=== PATIENT | male | born 1990 | race Two or more races ===

== ENCOUNTER 2024-02-27 12:16 | Outpatient (REF) | payer SELFPAY ==
[2024-02-27 13:07] LABS: MANUAL DIFF FLAG NO
[2024-02-27 13:28] LABS: Basophils Percent Auto 0.3 % (0-2); Eosinophils Absolute Auto 0.2 X10*3/uL (0.0-0.4); Eosinophils Percent Auto 2.6 % (0-4); Hematocrit 47.5 % (42.0-52.0); Hemoglobin 15.7 g/dl (14.0-18.0); Imm Gran Abs Auto 0.02 X10*3/uL (0.00-0.03); Imm Gran Pct Auto 0.3 % (0.0-0.4); Lymphocytes Absolute Auto 2.1 X10*3/uL (1.2-4.9); Lymphocytes Percent Auto 34.3 % (20-40); Mean Corpuscular HGB Conc 33.1 g/dl (31.0-36.0); Mean Corpuscular Hemoglobin 29.1 pg (27.0-33.0); Mean Platelet Volume 9.8 fL (9.4-12.4); Monocytes Absolute Auto 0.4 X10*3/uL (0.1-1.2); Monocytes Percent Auto 5.7 % (2-11); Neutrophils Absolute Auto 3.5 x10*3/uL (2.0-8.3); Neutrophils Percent Auto 56.8 % (45-73); Platelet Count 235 X10*3/uL (160-400); Red Cell Distribution Width 12.5 % (11.0-16.0); White Blood Count 6.1 X10*3/uL (4.8-10.8)
[2024-02-27 13:53] LABS: Anion Gap 14 (12-20); Blood Urea Nitrogen 12 mg/dL (9-16); C Reactive Protein 0.11 mg/dL (< or = 0.50); Carbon Dioxide 25 mmol/L (22-29); Chloride 104 mmol/L (96-108); Estimated Glomerular Filt Rate > 60; Glucose Random 85 mg/dL (60-115); Potassium 3.8 mmol/L (3.3-5.1); Sodium 139 mmol/L (135-145)
[2024-02-27 14:07] LABS: Erythrocyte Sedimentation Rate 2 MM/HR (0-15)
== END 2024-02-27 12:17 | disposition home or self-care (01) ==
LOC: HO.HHCL 12:16
PROVIDERS: Visit Provider Internal Medicine Geriatric Medicine
DX: M25.561 Pain in right knee (principal)
CPT/HCPCS: 36415; 80048; 85025; 85652; 86140

== ENCOUNTER 2024-03-03 11:49 | Outpatient (REF) | payer MEDICAID, SELFPAY | END 2024-03-03 11:50 | disposition home or self-care (01) | LOC: HO.HHCL 11:49 | PROVIDERS: Visit Provider Student in an Organized Health Care Education/Training Program | DX: Z13.89 Encounter for screening for other disorder (principal) ==

== ENCOUNTER 2024-08-18 08:21 | Outpatient (REF) | payer MEDICAID, SELFPAY | END 2024-08-18 08:22 | disposition home or self-care (01) | LOC: HO.US 08:21 | PROVIDERS: PCP Internal Medicine Geriatric Medicine; Visit Provider Internal Medicine Geriatric Medicine | DX: M25.561 Pain in right knee (principal); Z86.718 Personal history of other venous thrombosis and embolism | CPT/HCPCS: 93971 ==

== ENCOUNTER → 2024-08-18 08:25 | Outpatient (BNV) | payer MEDICAID, SELFPAY | PROVIDERS: PCP Internal Medicine Geriatric Medicine; Visit Provider Radiology Diagnostic Radiology | DX: M25.561 Pain in right knee (principal) | CPT/HCPCS: 93971 ==

== ENCOUNTER 2024-09-01 08:07 | Outpatient (AMB) | payer MEDICAID, SELFPAY ==
--- OUTSIDE RECORDS SUMMARY | 2024-09-01 08:10 | XMS_ITS | Encounter Summary ---
Author Organization [employer] Address [address] [facility] 7t [place] [address] Care Team Providers Care Manager Human Resources Name Role Phone Name, Milton GHOSH Primary Care Provider [phone] Encounter Details Date Type Department Care Team ([facility] st Contact Info) Description 08/18/2024 Orders Only [facility] [address] [place] [address] Name, MD Milton [address] [place] [address] Social History Tobacco Use Types Packs/Day Years Used Date Smoking Tobacco: Former Cigarettes Alcohol Use Standard Drinks/Week Comments Yes 0 (1 standard drink = 0.6 oz pur e alcohol) oca Depression Answer Date Recorded Patient Health Questionnaire-9 Score 9 01/28/2024 Patient Health Questionnaire-9 Score 9 01/28/2024 Last PHQ-9: Questionnaire Data Not on file 0 01/28/2024 Housing Stability Answer Date Recorded What is your housing situation today? I have jose maria donald 01/21/[address] you li ve. Do you have problems with any of the following? Lead [place] or Pipes 01/21/2024 Food Insecurity Answer Date Recorded Within the past 12 months, y ou worried that your food would run out before you got money to buy more: Often true 01/21/2024 Within the past 12 months,th e food you bought just didn't last and you didn't have enough money to get more: Often true Transportation Answer Date Recorded In the past 12 months, has l ack of transportation kept you from medical appts, meetings, work or from getting things needed for daily living? No 01/21/2024 Utilities Answer Date Recorded In the past 12 months, has t he electric, gas, oil or water company threatened to shut off services in your home? No 01/21/2024 Depression Answer Date Recorded Patient Health Questionnaire-2 Score 6 01/28/2024 Internet Access Answer Date Recorded Internet Access Q1 Yes 03/10/2024 Internet Access Q2 Not on file 03/10/2024 Sex and Gender Information Value Date Recorded Sex Assigned at Male 01/01/2024 1:41 PM EDT Legal Sex Male 1:38 PM EDT Gender Identity Male 01/01/2024 1:41 PM EDT Sexual Orientation Straight 01/01/2024 1: 41 PM EDT documented as of this encounter Plan of Treatment Upcoming Encounters Date Type Department Care Team (Late st Contact Info) Description 09/10/2024 3:15 PM EST Office Visit [facility] [address] [place] [id number] Name, MD Milton [address] [place] [address] documented as of this encounter Procedures Procedure Name Priority Date/Time Associated Diagnosis Comments US VENOUS DUPLEX LE RT Routine 08/18/2024 10:37 AM EST documented in this encounter Results * US VENOUS DUPLEX LE RT (08/18/2024 10:37 AM EST) Anatomical Region Laterality Modality Abdomen Ultrasound 08/18/2024 10:3 7 AM EST Narrative 08/18/2024 10:38 AM EST ? [facility] ?[address] ?[place] [address] ? Ultrasound Report ? Signed ? Patient: Douglas Ruvalcaba ?MR#: MM ?? [id number] ? : 1990 ?Acct:[id number] ? Age/Sex: 34 / M ?ADM Date: 02/10/25 ? Loc: HO.US ? Attending Dr: Milton Venegas MD ? Ordering Physician: Milton Venegas MD ?? Date of Service: 08/18/24 ?? Procedure(s): US venous duplex LE RT ?? Accession Number(s): [id number] ? cc: Milton Venegas MD ? CLINICAL HISTORY: CHRONIC PAIN OF RIGHT KNEE, HX OF DVT ? Right lower extremity duplex venous Doppler ? Comparison: None ? Technique: Grayscale/Color/Duplex Doppler sonographic evaluation of the ?? deep venous system within the right lower extremity. ? Findings: ?? Right lower extremity ?? Common femoral vein: Patent ?? CFV/GSV junction: Patent ?? Femoral vein: Patent ?? Popliteal vein: Patent ?? Infrapopliteal veins: Patent where seen ?? Soft tissue: No focal abnormality ? Impression: ?? 1. Negative for right lower extremity DVT. ?? 2. No Toscano's cyst ? This document has been electronically signed by: Jean Claude Hayes MD on ?? 08/18/2024 10:37:54 ? Dictated By: ?Jean Claude Hayes MD ? Signed By: ?<Electronically signed by Jean Claude Hayes MD in OV> ?08/18/24 1038 ? DD/ 1037 ? TD/TT: 08/18/24 1037 ? Human Performance Consultant: ? Procedure Note Jewels Cummings - 08/18/2024 [place] [id number] Ultrasound Report Signed Patient: Douglas Ruvalcaba#: [id number] : 1990Acct:[id number] Age/Sex: 34 / MADM Date: 08/18/24 Loc: HO. Attending Dr: Milton Venegas MD Ordering Physician: Milton Venegas MD Date of Service: 08/18/24 Procedure(s): US venous duplex LE RT Accession Number(s): [id number] cc: Milton Venegas MD CLINICAL HISTORY: CHRONIC PAIN OF RIGHT KNEE, HX OF DVT Right lower extremity duplex venous Doppler Comparison: None Technique: Grayscale/Color/Duplex Doppler sonographic evaluation of the deep venous system within the right lower extremity. Findings: Right lower extremity Common femoral vein: Patent CFV/GSV junction: Patent Femoral vein: Patent Popliteal vein: Patent Infrapopliteal veins: Patent where seen Soft tissue: No focal abnormality Impression: 1. Negative for right lower extremity DVT. 2. No Toscano's cyst This document has been electronically signed by: Jean Claude Hayes MD on 08/18/2024 10:37:54 Dictated By: Jean Claude Hayes MD Signed By: <Electronically signed by Jean Claude Hayes MD in OV> 08/18/24 1038 DD/ 1037 TD/TT: 08/18/24 1037 Human Performance Consultant: us Milton [facility] Final Result documented in this encounter Visit Diagnoses Not on filedocumented in this encounter Additional Health Concerns Assessment Noted Time PHQ-9 Depression Total Score: 9 01/28/20 24 1:05 PM EDT documented as of this encounter Care Teams Manager Human Resources Relationship Specialty Start Date End Date Name, MD Milton [address] [place] [address] PCP - General Internal Medicine 01/28/24 documented as of this encounter
--- OUTSIDE RECORDS SUMMARY | 2024-09-01 08:10 | XMS_ITS | Encounter Summary ---
Author Organization [employer] Address [address] [facility] [address] h [address] [address] Care Team Providers Care Fund Director Name Role Phone Name, Milton GHOSH Primary Care Provider [phone] Reason for Visit * Reason Onset Date Comments Medication Question 08/27/2024 Patient walk ed in stating his leg pains keeps on and medication prescribed is not helping , patient stated he needs a different medication . Also patient stated his leg sometimes doesn't move it stays stuck it doesn't bend. Encounter Details Date Type Department Care Team (Late st Contact Info) Description 08/27/2024 Telephone [facility] [address] [place] [address] Name, MD Milton [address] [place] [address] Medication Question (Patient walked in stating his leg pains keeps on and medication prescribed is not helping , patient stated he needs a different medication . Also patient stated his leg sometimes doesn't move it stays stuck it doesn't bend. ) Social History Tobacco Use Types Packs/Day Years [...] problems with any of the following? Lead [place] or Pipes 01/21/2024 Food Insecurity Answer Date [...] PM EDT documented as of this encounter Miscellaneous Notes * Telephone Encounter - Lore Gutierrez RN - 08/27/2024 1:29 PM EST TC to pt re below message : Patient walked in stating his leg pains keeps on and medication prescribed is not helping , patientstated he needs a different medication . Also patient stated his leg sometimes doesn't move it stays stuck it doesn't bend. Pt states he is in a great deal of pain, states the meds he is currently on are not providing relief, pt asking if pcp can prescribe the med I was on at first. Pt advised to go to walk in center per pcp, pt states they don't do anything nthat helps my pain. Message forwarded to pcp as FYI. Pt has appt 09/10/24. * Telephone Encounter - Milton Venegas MD - 08/27/2024 11:42 AM EST Why dont you have this patient be evaluated at the walk in clinic? * Telephone Encounter - Cortney Mark - 08/27/2024 11:35 AM EST Patient walked in stating his leg pains keeps on and medication prescribed is not helping , patientstated he needs a different medication . Also patient stated his leg sometimes doesn't move it stays stuck it doesn't bend. documented in this encounter Plan of Treatment Upcoming Encounters Date Type Department Care Team (Late st Contact Info) Description 09/10/2024 3:15 PM EST Office Visit [facility] [address] [place] [address] NameMitlon MD [address] [place] [address] documented as of this encounter Visit Diagnoses Diagnosis Acute deep vein thrombosis (DVT) of right lower extremity, unspecified vein (CMS/HCC)- Primary documented in this encounter Additional Health Concerns Assessment Noted Time PHQ-9 Depression Total Score: 9 01/28/20 24 1:05 PM EDT documented as of this encounter Care Teams Fund Director Relationship Specialty Start Date End Date NameMilton MD [address] [place] [phone] PCP - General Internal Medicine 01/28/24 documented as of this encounter
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
--- OUTSIDE RECORDS SUMMARY | 2024-09-01 08:10 | XMS_ITS | Encounter Summary ---
Author Organization [employer] Address [address] [facility] [address] 7t [place] [address] Care Team Providers Care Loftsman/Woman Name Role Phone Name, Milton GHOSH Primary Care Provider [phone] Encounter Details Date Type Department Care Team ([facility] st Contact Info) Description 08/18/2024 Telephone [facility] [address] [place], [place] [phone] Veronica Hall, RN Social History Tobacco Use Types Packs/Day Years [...] problems with any of the following? Lead [place] or Pipes 01/21/2024 Food Insecurity Answer Date [...] t he electric, gas, oil or water [employer] threatened to shut off services in your [...] encounter Miscellaneous Notes * Telephone Encounter - Veronica Hall RN - 08/18/2024 12:15 PM EST TC placed to pt via [employer] sumac tanner ([place] ID#[id number]) per below provider message, Milton Venegas MD; Please let the patient know that his leg ultrasound is normal. DVT has resolved completely. Pt verbalized understanding of PCP message and denies questions or concerns at this time. documented in this encounter Plan of Treatment Upcoming Encounters Date Type Department Care Team (Late st Contact Info) Description 09/10/2024 3:15 PM EST Office Visit [facility] [address] [place] [address] Name, MD Milton [address] [place] [address] documented as of this encounter Visit Diagnoses Not on filedocumented in this encounter Additional Health Concerns Assessment Noted Time PHQ-9 Depression Total Score: 9 01/28/20 24 1:05 PM EDT documented as of this encounter Care Teams Loftsman/Woman Relationship Specialty Start Date End Date Name, MD Milton [address] [place] [id number] PCP - General Internal Medicine 01/28/24 documented as of this encounter
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
[2024-09-01 08:24] VITALS: BMI 28.9
== END 2024-09-01 08:50 | disposition home or self-care (01) ==
PROVIDERS: PCP Internal Medicine Geriatric Medicine; Visit Provider Physician Assistant
DX: M25.361 Other instability, right knee (principal); S81.031D Puncture wound without foreign body, right knee, subsequent encounter; M76.71 Peroneal tendinitis, right leg
CPT/HCPCS: 99203

== ENCOUNTER → 2024-09-01 08:10 | Outpatient (BNV) | payer MEDICAID, SELFPAY | PROVIDERS: Visit Provider Radiology Diagnostic Radiology | DX: M17.11 Unilateral primary osteoarthritis, right knee (principal) | CPT/HCPCS: 73562 ==

== ENCOUNTER 2024-09-01 12:15 | Outpatient (REF) | payer MEDICAID, SELFPAY ==
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
--- OUTSIDE RECORDS SUMMARY | 2024-09-02 14:53 | XMS_ITS | Encounter Summary ---
Author Organization [employer] Address [address] [facility] 7t [place] [address] Care Team Providers Care Fire Control Technician B Name Role Phone Name, Milton GHOSH Primary Care Provider [phone] Reason for Visit * Reason Comments Fall Encounter Details Date Type Department Care Team ([facility] st Contact Info) Description 08/11/2024 3:00 PM EST Office Visit [facility] [address] [place], [place] [phone] Catia Kumar NP [address] [place], [place] [phone] Fall, subsequent encounter (Primary Dx); Right knee [...] problems with any of the following? Lead [place] or Pipes 01/21/2024 Food Insecurity Answer Date [...] Description 09/10/2024 3:15 PM EST Office Visit [facility] [address] [place] [address] Name, MD Milton [address] [place] [address] documented as of this encounter Visit Diagnoses Diagnosis Fall, subsequent encounter- Primary Right knee pain, unspecified chronicity Recurrent right knee instability documented in this encounter Additional Health Concerns Assessment Noted Time PHQ-9 Depression Total Score: 9 01/28/20 24 1:05 PM EDT documented as of this encounter Care Teams Fire Control Technician B Relationship Specialty Start Date End Date Name, MD Milton [address] [place] [address] PCP - General Internal Medicine 01/28/24 documented as of this encounter
--- OUTSIDE RECORDS SUMMARY | 2024-09-02 14:53 | XMS_ITS | Encounter Summary ---
Author Organization [employer] Address [address] [facility] 7t [place] [address] Care Team Providers Care Insulation Professional Name Role Phone Name, Milton GHOSH Primary Care Provider [phone] Reason for Visit * Reason Onset Date [...] (Late st Contact Info) Description 08/27/2024 Telephone [facility] [address] [place] [address] Name, MD Milton [address] [place] [address] Medication Question (Patient walked in [...] problems with any of the following? Lead [place] or Pipes 01/21/2024 Food Insecurity Answer Date [...] Description 09/10/2024 3:15 PM EST Office Visit [facility] [address] [place] [phone] NameMilton MD 230 [place] [address] documented as of this encounter Visit Diagnoses Diagnosis Acute deep vein thrombosis (DVT) of right lower extremity, unspecified vein (CMS/HCC)- Primary documented in this encounter Additional Health Concerns Assessment Noted Time PHQ-9 Depression Total Score: 9 01/28/20 24 1:05 PM EDT documented as of this encounter Care Teams Insulation Professional Relationship Specialty Start Date End Date NameMilton MD [address] [place] [address] PCP - General Internal Medicine 01/28/24 documented as of this encounter
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
--- OUTSIDE RECORDS SUMMARY | 2024-09-02 14:53 | XMS_ITS | Encounter Summary ---
Author Organization [employer] Address [address] [facility] 7t [place] [address] Care Team Providers Care Rod Puller And Coiler Name Role Phone Name, Milton GHOSH Primary Care Provider [phone] Encounter Details Date Type Department Care Team ([facility] st Contact Info) Description 08/18/2024 Orders Only [facility] [address] [place] [address] Name, MD Milton [address] [place] [address] Social History Tobacco Use Types Packs/Day Years [...] problems with any of the following? Lead [place] or Pipes 01/21/2024 Food Insecurity Answer Date [...] Description 09/10/2024 3:15 PM EST Office Visit [facility] [address] [place] [address] Name, MD Milton [address] [place] [address] documented as of this encounter Procedures Procedure Name Priority Date/Time Associated Diagnosis Comments US VENOUS DUPLEX LE RT Routine 08/18/2024 10:37 AM EST documented in this encounter Results * US VENOUS DUPLEX LE RT (08/18/2024 10:37 AM EST) Anatomical Region Laterality Modality Abdomen Ultrasound 08/18/2024 10:3 7 AM EST Narrative 08/18/2024 10:38 AM EST ? [facility] ?[address] ?[place] [address] ? Ultrasound Report ? Signed ? Patient: Douglas Ruvalcaba ?MR#: MM ?? [id number] ? : 1990 ?Acct:[id number] ? Age/Sex: 34 / M ?ADM Date: 02/10/25 ? Loc: HO.US ? Attending Dr: Milton Venegas MD ? Ordering Physician: Milton Venegas MD ?? Date of Service: 08/18/24 ?? Procedure(s): US venous duplex LE RT ?? Accession Number(s): [id number] ? cc: Milton Venegas MD ? CLINICAL [...] DD/ 1037 ? TD/TT: 08/18/24 1037 ? Control Room Technician: ? Procedure Note Jewels Cummings - 08/18/2024 [place] [address] Ultrasound Report Signed Patient: Douglas Ruvalcaba#: MM [id number] : 1990Acct:[id number] Age/Sex: 34 / MADM Date: 08/18/24 Loc: HO. Attending Dr: Milton Venegas MD Ordering Physician: Milotn Venegas MD Date of Service: 08/18/24 Procedure(s): US venous duplex LE RT Accession Number(s): [id number] cc: Milton Venegas MD CLINICAL HISTORY: CHRONIC [...] 08/18/24 1038 DD/ 1037 TD/TT: 08/18/24 1037 Control Room Technician: us Milton Name [facility] PROCEDURES Final Result documented in this encounter Visit Diagnoses Not on filedocumented in this encounter Additional Health Concerns Assessment Noted Time PHQ-9 Depression Total Score: 9 01/28/20 24 1:05 PM EDT documented as of this encounter Care Teams Rod Puller And Coiler Relationship Specialty Start Date End Date Name, MD Milton [address] [place] [address] PCP - General Internal Medicine 01/28/24 documented as of this encounter
== END 2024-09-01 12:16 | disposition home or self-care (01) ==
LOC: HO.HOSX 12:15
PROVIDERS: Visit Provider Physician Assistant
DX: M17.11 Unilateral primary osteoarthritis, right knee (principal); Z87.81 Personal history of (healed) traumatic fracture; Z98.890 Other specified postprocedural states
CPT/HCPCS: 73562; 99212

== ENCOUNTER 2024-10-20 11:04 | Emergency (ER) | payer OTHER, MEDICAID, SELFPAY ==
--- NOTE | ~2024-10-20 | XR_ITS ---
EXAMINATION: XR HIP 2 OR MORE VIEWS LEFT, XR FEMUR 2 VIEWS LEFT HISTORY: fall, pain COMPARISON: There are no prior studies for comparison. FINDINGS: A single AP view of the pelvis, 2 views of the left hip, and AP and lateral views of the left femur are submitted. Osseous mineralization is normal. There is no fracture or dislocation. The hip and knee joint spaces are maintained. The soft tissues are unremarkable. XR/XR femur LT 2V IMPRESSION: No evidence of fracture of the left hip or femur. Electronically signed by: Joe Obrien MD 10/20/2024 12:12 PM EDT
--- NOTE | ~2024-10-20 | CT_ITS ---
EXAMINATION: CT ABDOMEN PELVIS WITH IV CONTRAST, CT CHEST WITH IV CONTRAST INDICATION: L flank pain, fall 6 feet COMPARISON: None. TECHNIQUE: CT scan of the chest, abdomen and pelvis was performed following administration of 85 mL Omnipaque 350 using standard departmental protocol. Coronal and sagittal reformatted images were generated and reviewed. Oral contrast material was not administered at the request of the referring physician. This CT exam was performed with one or more of the following dose reduction techniques: automated exposure control, adjustment of the mA and/or kV according to patient size, use of iterative reconstruction technique. DLP: 1524 mGy-cm CHEST: THYROID: The thyroid is unremarkable. LUNGS: There is mild dependent atelectasis bilaterally. The lungs are otherwise clear. MEDIASTINUM: There is no mediastinal lymphadenopathy. ELISSA: There is no hilar lymphadenopathy. CARDIOVASCULATURE: The heart is normal in size. There is no pericardial effusion. The thoracic aorta is normal in caliber. DEGREE OF CORONARY CALCIFICATION: none PLEURA: There is no pleural effusion. No pneumothorax. MAIN AIRWAYS: The mainstem bronchi and proximal branches are patent. AXILLA: There is no axillary lymphadenopathy. SOFT TISSUES: Unremarkable. BONES: The bones are intact. ABDOMEN: LIVER: The liver is normal in size and contour. No liver mass is identified. The hepatic and portal veins are patent. GALLBLADDER / BILE DUCTS: The gallbladder is unremarkable. There is no intra or extrahepatic biliary ductal dilatation. SPLEEN: The spleen is normal in size. No focal splenic lesion is identified. PANCREAS: The pancreas is unremarkable in appearance. ADRENAL GLANDS: Within normal limits. KIDNEYS/RETROPERITONEUM: No renal calculi are identified. There is no hydronephrosis. No renal masses are identified. LYMPH NODES: No abdominal or pelvic lymphadenopathy. VASCULATURE: The abdominal aorta is normal in caliber. MESENTERY/PERITONEUM: No free fluid. No masses. There is no free intraperitoneal gas. STOMACH: The stomach is collapsed, limiting evaluation. SMALL BOWEL: The small bowel is normal in caliber. COLON: The colon is unremarkable. APPENDIX: Normal. URINARY BLADDER/PELVIC ORGANS: The urinary bladder is unremarkable. The prostate is normal in size. BONES / SOFT TISSUES: There is a fat-containing left inguinal hernia. The bones are intact. CT/CT abdomen pelvis w IV con IMPRESSION: No evidence of traumatic injury to the chest, abdomen, or pelvis. Electronically signed by: Joe Obrien MD 10/20/2024 01:29 PM EDT RP
--- NOTE | ~2024-10-20 | XR_ITS ---
EXAMINATION: XR KNEE 3 VIEWS LEFT HISTORY: fall, pain COMPARISON: There are no prior studies available for comparison. FINDINGS: Four views of the left knee are submitted. Osseous mineralization is normal. There is no fracture or dislocation. The joint spaces are preserved. The soft tissues are unremarkable. There is no joint effusion. XR/XR knee LT 3V IMPRESSION: Unremarkable examination of the left knee. Electronically signed by: Joe Obrien MD 10/20/2024 12:14 PM EDT
--- NOTE | ~2024-10-20 | XR_ITS ---
EXAMINATION: XR HIP 2 OR MORE VIEWS LEFT, XR FEMUR 2 VIEWS LEFT HISTORY: fall, pain COMPARISON: There are no prior studies for comparison. FINDINGS: A single AP view of the pelvis, 2 views of the left hip, and AP and lateral views of the left femur are submitted. Osseous mineralization is normal. There is no fracture or dislocation. The hip and knee joint spaces are maintained. The soft tissues are unremarkable. XR/XR pelvis 1-2V IMPRESSION: No evidence of fracture of the left hip or femur. Electronically signed by: Joe Obrien MD 10/20/2024 12:12 PM EDT
--- NOTE | ~2024-10-20 | CT_ITS ---
EXAMINATION: CT HEAD WITHOUT CONTRAST CLINICAL INFORMATION: Headache, fall off of ladder. Head trauma. COMPARISON: None available. TECHNIQUE: Contiguous axial imaging was performed from the skull base to vertex without intravenous administration of contrast. This CT examination was performed using dose optimization techniques as appropriate, variously including the following: *Automated exposure control *Adjustment of mA and/or kV according to patient size (this includes techniques or standardized protocols for targeted exams where dose is matched to indication/reason for exam; i.e. extremities or head) *Use of iterative reconstruction technique FINDINGS: There is no evidence of intracranial hemorrhage or extra-axial fluid collection. There is no mass effect, or edema. No CT evidence of acute territorial infarct. Ventricles, sulci, and cisterns are normal in size and configuration for patient age. No hydrocephalus. No midline shift. Negative hyperdense MCA sign. Negative insular ribbon sign. No significant white matter abnormality. Normal pituitary. Globes and orbital contents image normally. Mild soft tissue swelling over the right frontal scalp noted. The paranasal sinuses, mastoid air cells, and tympanic cavities are normally aerated. No suspicious bony abnormalities. There are no acute fractures evident. CT/CT head/brain wo IV con IMPRESSION: 1. No acute intracranial abnormality. No fractures evident. 2. Mild soft tissue swelling overlying right frontal scalp. Electronically signed by: Prashanth Khanna MD 10/20/2024 01:43 PM EDT
--- NOTE | ~2024-10-20 | CT_ITS ---
EXAMINATION: CT CERVICAL SPINE WITHOUT CONTRAST CLINICAL INFORMATION: Fall, neck pain COMPARISON: None available. TECHNIQUE: Spiral CT imaging of the cervical spine performed in axial plane without contrast. Multiplanar reformatted images were constructed from the axial data set. This CT examination was performed using dose optimization techniques as appropriate, variously including the following: *Automated exposure control *Adjustment of mA and/or kV according to patient size (this includes techniques or standardized protocols for targeted exams where dose is matched to indication/reason for exam; i.e. extremities or head) *Use of iterative reconstruction technique FINDINGS: CORONAL ALIGNMENT: -Normal. SAGITTAL ALIGNMENT: -Normal. C1-C2 AND CRANIOCERVICAL JUNCTION: -Intact and normally aligned. VERTEBRAL BODIES AND FACETS: -No fracture, compression deformity, traumatic malalignment, or suspicious bone lesion. -Normal facet alignment bilaterally. DISCS: -Mild degenerative disc changes present C4-C7. CENTRAL CANAL: -No evidence of high-grade central canal narrowing or large disc herniation allowing for modality limitations. PREVERTEBRAL AND PARAVERTEBRAL SOFT TISSUES: -Normal. -Normal thyroid gland. LUNG APICES: -Clear bilaterally. No pneumothorax. CT/CT cervical spine wo IV con IMPRESSION: 1. No CT evidence of acute cervical spine fracture or injury. Electronically signed by: Prashanth Khanna MD 10/20/2024 01:46 PM EDT
--- NOTE | ~2024-10-20 | XR_ITS ---
EXAMINATION: XR ANKLE, LEFT CLINICAL INFORMATION: fall, pain COMPARISON: None available. TECHNIQUE: AP, lateral, and mortise views of the left ankle. FINDINGS: Prior lateral plate and screw fixation of the distal fibular metadiaphysis. No hardware loosening or abnormality. No acute fracture or dislocation. Normal alignment. The mortise is intact. The talar dome is normal. The subtalar joints and calcaneus appear normal. There is no ankle joint effusion. There is normal soft tissue. XR/XR ankle LT 2V IMPRESSION: No acute bony or soft tissue abnormalities. Electronically signed by: Prashanth Khanna MD 10/20/2024 12:14 PM EDT
[2024-10-20 11:20] VITALS: BP 134/80; PULSE 58; RESP 14; TEMP 36.9; O2SAT 98; BMI 29.8
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
[2024-10-20 11:46] LABS: MANUAL DIFF FLAG NO
--- NOTE | 2024-10-20 11:50 | PC.NURSE ---
pt at imaging
[2024-10-20 11:52] LABS: Basophils Percent Auto 0.5 % (0-2); Eosinophils Absolute Auto 0.2 X10*3/uL (0.0-0.4); Eosinophils Percent Auto 2.7 % (0-4); Hematocrit 42.1 % (42.0-52.0); Hemoglobin 14.3 g/dl (14.0-18.0); Imm Gran Abs Auto 0.01 X10*3/uL (0.00-0.03); Imm Gran Pct Auto 0.2 % (0.0-0.4); Lymphocytes Absolute Auto 2.1 X10*3/uL (1.2-4.9); Lymphocytes Percent Auto 37.1 % (20-40); Mean Corpuscular Hemoglobin 30.4 pg (27.0-33.0); Mean Corpuscular Volume 89.4 fL (80.0-98.0); Mean Platelet Volume 9.7 fL (9.4-12.4); Monocytes Absolute Auto 0.3 X10*3/uL (0.1-1.2); Monocytes Percent Auto 6.1 % (2-11); Neutrophils Percent Auto 53.4 % (45-73); Platelet Count 235 X10*3/uL (160-400); Red Blood Count 4.71 X10*6/uL (4.60-5.80); Red Cell Distribution Width 12.5 % (11.0-16.0); White Blood Count 5.6 X10*3/uL (4.8-10.8)
[2024-10-20 12:04] VITALS: RESP 20
[2024-10-20] MEDS: Morphine Sulfate 2 MG/ML CARTRIDGE IVPUSH ×2 (12:04→13:44)
[2024-10-20 12:06] LABS: Alanine Aminotransferase 11 U/L (0-40); Albumin Level 4.5 g/dL (3.5-5.0); Alkaline Phosphatase 76 U/L (39-117); Anion Gap 10 (12-20); Aspartate Amino Transferase 24 U/L (5-37); Bilirubin Direct 0.2 mg/dL (0.0-0.5); Bilirubin Total 0.7 mg/dL (0.0-1.0); Blood Urea Nitrogen 12 mg/dL (9-16); Calcium 9.4 mg/dL (8.4-10.2); Carbon Dioxide 25 mmol/L (22-29); Chloride 107 mmol/L (96-108); Creatinine Clr Calc Pharmacy 141.4; Estimated Glomerular Filt Rate > 60; Glucose Random 89 mg/dL (60-115); Sodium 138 mmol/L (135-145); Total Protein 7.4 g/dL (6.5-8.0)
[2024-10-20] MEDS: iohexoL 350 MG/ML 100 ML INFUS..BTL IV (12:58)
[2024-10-20 13:44] VITALS: RESP 18
[2024-10-20 13:48] VITALS: BP 126/70; PULSE 78; RESP 18
[2024-10-20 14:00] VITALS: BP 126/70; PULSE 78; RESP 18; TEMP 37; O2SAT 97
[2024-10-20 14:38] VITALS: BP 126/70; PULSE 78; RESP 18; TEMP 37; O2SAT 97
--- OUTSIDE RECORDS SUMMARY | 2024-10-20 14:41 | XMS_ITS | Encounter Summary ---
Author Organization [employer] Address [address] [facility] 7[address] [place] [address] Care Team Providers Care Credit Product Analyst Name Role Phone Name, Milton GHOSH Primary Care Provider [phone] Encounter Details Date Type Department Care Team (Late st Contact Info) Description 10/20/2024 Orders Only [facility] External Provider, [facility] Social History Tobacco Use Types Packs/Day Years Used Date Smoking Tobacco: Former Cigarettes Alcohol Use Standard Drinks/Week Comments Yes 0 (1 standard drink = 0.6 oz pur e alcohol) oca Depression Answer Date Recorded Patient Health Questionnaire-9 Score 19 09/10/2024 Patient Health Questionnaire-9 Score 19 09/10/2024 Last PHQ-9: Questionnaire Data Not on file 0 09/10/2024 Housing Stability Answer Date Recorded What is your housing situation today? I have jose maria donald 01/21/[address] you li ve. Do you have problems with any of the following? Lead [place] [employer] 01/21/2024 Food Insecurity Answer Date [...] Date Recorded Patient Health Questionnaire-2 Score 6 09/10/2024 Internet Access Answer Date Recorded Internet Access [...] Care Team (Late st Contact Info) Description 12/24/2024 2:00 PM EDT Office Visit [facility] [address] [place] [address] Name, MD Milton [address] [place] [address] documented as of this encounter Procedures Procedure Name Priority Date/Time Associated Diagnosis Comments CT CHEST W CONTRAST Routine 10/20/2024 1 2:[address] ABDOMEN PELVIS W CONTRAST Routine 10/20/2024 11:[address] CERVICAL SPINE WO CONTRAST Routine 10/20/2024 11:[address] HEAD WO CONTRAST Routine 10/20/2024 1 1:23 AM EDT XR ANKLE 2 VIEWS LEFT Routine 10/20/2024 11:23 AM EDT XR KNEE 3 VIEWS LEFT Routine 10/20/2024 11:23 AM EDT XR FEMUR 2+ VIEWS LEFT Routine 10/20/2024 11:23 AM EDT XR HIP 2 OR 3 VIEWS LEFT Routine 10/20/2024 11:23 AM EDT documented in this encounter Results * CT Chest w/ Contrast (10/20/2024 12:28 PM EDT) Anatomical Region Laterality Modality Body, Chest Computed Tomogra phy 10/20/2024 12:2 8 PM EDT Narrative 10/20/2024 1:32 PM EDT ? [facility] ?[address] ?[place] [address] ? CT Scan Report ? Signed ? Patient: RuvalcabaDouglas ?MR#: MM ?? [id number] ? : 1990 ?Acct:[id number] ? Age/Sex: 34 / M ?ADM Date: 10/20/24 ? Loc: HO.ED ? Attending Dr: ? Ordering Physician: Suyapa Cuellar MD ?? Date of Service: 10/20/24 ?? Procedure(s): CT chest w IV con ?? Accession Number(s): [id number] ? cc: Name,Milton GHOSH; Suyapa Cuellar MD ? Report Number: ?? [id number]: Total DLP = ??534.00 mGy-cm ?? EXAMINATION: ??CT ABDOMEN PELVIS WITH IV CONTRAST, CT CHEST WITH IV ?? CONTRAST ? INDICATION: L flank pain, fall 6 feet ? COMPARISON: None. ? TECHNIQUE: CT scan of the chest, abdomen and pelvis was performed ?? following administration of 85 mL Omnipaque 350 using standard ?? departmental protocol. ?? Coronal and sagittal reformatted images were ?? generated and reviewed. ??Oral contrast material was not administered at ?? the request of the referring physician. ? This CT exam was performed with one or more of the following dose ?? reduction techniques: automated exposure control, adjustment of the mA ?? and/or kV according to patient size, use of iterative reconstruction ?? technique. ? DLP: 1524 mGy-cm ? CHEST: ? THYROID: The thyroid is unremarkable. ? LUNGS: There is mild dependent atelectasis bilaterally. The lungs are ?? otherwise clear. ? MEDIASTINUM: There is no mediastinal lymphadenopathy. ? ELISSA: There is no hilar lymphadenopathy. ? CARDIOVASCULATURE: The heart is normal in size. ??There is no ?? pericardial effusion. ??The thoracic aorta is normal in caliber. ? DEGREE OF CORONARY CALCIFICATION: ??none ? PLEURA: ??There is no pleural effusion. ??No pneumothorax. ? MAIN AIRWAYS: The mainstem bronchi and proximal branches are patent. ? AXILLA: There is no axillary lymphadenopathy. ? SOFT TISSUES: ??Unremarkable. ? BONES: ??The bones are intact. ? ABDOMEN: ? LIVER: ??The liver is normal in size and contour. ??No liver mass is ?? identified. ??The hepatic and portal veins are patent. ? GALLBLADDER / BILE DUCTS: ??The gallbladder is unremarkable. There is no ?? intra or extrahepatic biliary ductal dilatation. ? SPLEEN: The spleen is normal in size. No focal splenic lesion is ?? identified. ? PANCREAS: The pancreas is unremarkable in appearance. ? ADRENAL GLANDS: Within normal limits. ? KIDNEYS/RETROPERITONEUM: No renal calculi are identified. There is no ?? hydronephrosis. ??No renal masses are identified. ? LYMPH NODES: ??No abdominal or pelvic lymphadenopathy. ? VASCULATURE: ??The abdominal aorta is normal in caliber. ? MESENTERY/PERITONEUM: No free fluid. No masses. ??There is no free ?? intraperitoneal gas. ? STOMACH: ??The stomach is collapsed, limiting evaluation. ? SMALL BOWEL: ?? The small bowel is normal in caliber. ? COLON: ??The colon is unremarkable. ? APPENDIX: ??Normal. ? URINARY BLADDER/PELVIC ORGANS: The urinary bladder is unremarkable. ? The prostate is normal in size. ? BONES / SOFT TISSUES: ??There is a fat-containing left inguinal hernia. ?? The bones are intact. ? CT/CT chest w IV con ?? IMPRESSION: ?? No evidence of traumatic injury to the chest, abdomen, or pelvis. ? Electronically signed by: ??Joe Obrien MD ??10/20/2024 01:29 PM EDT ?? RP ? Dictated By: ?Joe Obrien MD ? Signed By: ?<Electronically signed by Joe Obrien MD in OV> ?10/20/24 1329 ? DD/ 1228 ? TD/TT: 10/20/24 1309 ? Senior Data Analyst: ? Procedure Note Donotedgarinterpreter, Image - 10/20/[address] [place] [address] [address] Scan Report Signed Patient: Douglas RuvalcabaR#: [id number] : 1990Acct:[id number] Age/Sex: 34 / MADM Date: 10/20/24 Loc: HO.ED Attending Dr: Ordering Physician: Suyapa Cuellar MD Date of Service: 10/20/24 Procedure(s): CT chest w IV con Accession Number(s): [id number] cc: Name,Milton GHOSH; Suyapa Cuellar MD Report Number: [id number]: Total DLP = 534.00 mGy-cm EXAMINATION: CT ABDOMEN PELVIS WITH IV CONTRAST, CT CHEST WITH IV CONTRAST INDICATION: L flank pain, fall 6 feet COMPARISON: None. TECHNIQUE: CT scan of the chest, abdomen and pelvis was performed following administration of 85 mL Omnipaque 350 using standard departmental protocol. Coronal and sagittal reformatted images were generated and reviewed. Oral contrast material was not administered at the request of the referring physician. This CT exam was performed with one or more of the following dose reduction techniques: automated exposure control, adjustment of the mA and/or kV according to patient size, use of iterative reconstruction technique. DLP: 1524 mGy-cm CHEST: THYROID: The thyroid is unremarkable. LUNGS: There is mild dependent atelectasis bilaterally. The lungs are otherwise clear. MEDIASTINUM: There is no mediastinal lymphadenopathy. ELISSA: There is no hilar lymphadenopathy. CARDIOVASCULATURE: The heart is normal in size. There is no pericardial effusion. The thoracic aorta is normal in caliber. DEGREE OF CORONARY CALCIFICATION: none PLEURA: There is no pleural effusion. No pneumothorax. MAIN AIRWAYS: The mainstem bronchi and proximal branches are patent. AXILLA: There is no axillary lymphadenopathy. SOFT TISSUES: Unremarkable. BONES: The bones are intact. ABDOMEN: LIVER: The liver is normal in size and contour. No liver mass is identified. The hepatic and portal veins are patent. GALLBLADDER / BILE DUCTS: The gallbladder is unremarkable. There is no intra or extrahepatic biliary ductal dilatation. SPLEEN: The spleen is normal in size. No focal splenic lesion is identified. PANCREAS: The pancreas is unremarkable in appearance. ADRENAL GLANDS: Within normal limits. KIDNEYS/RETROPERITONEUM: No renal calculi are identified. There is no hydronephrosis. No renal masses are identified. LYMPH NODES: No abdominal or pelvic lymphadenopathy. VASCULATURE: The abdominal aorta is normal in caliber. MESENTERY/PERITONEUM: No free fluid. No masses. There is no free intraperitoneal gas. STOMACH: The stomach is collapsed, limiting evaluation. SMALL BOWEL: The small bowel is normal in caliber. COLON: The colon is unremarkable. APPENDIX: Normal. URINARY BLADDER/PELVIC ORGANS: The urinary bladder is unremarkable. The prostate is normal in size. BONES / SOFT TISSUES: There is a fat-containing left inguinal hernia. The bones are intact. CT/CT chest w IV con IMPRESSION: No evidence of traumatic injury to the chest, abdomen, or pelvis. Electronically signed by: Joe Obrien MD 10/20/2024 01:29 PM EDT Dictated By: Joe Obrien MD Signed By: <Electronically signed by Joe Obrien MD in OV> 10/20/24 1329 DD/ 1228 TD/TT: 10/20/24 1309 Senior Data Analyst: [facility] External Provider IMG CT PROCEDURES Edited Result - Final * CT Cervical Spine w/o Contrast (10/20/2024 11:23 AM EDT) Anatomical Region Laterality Modality Spine, C-spine Computed Tomogra phy 10/20/2024 11:2 3 AM EDT Narrative 10/20/2024 1:49 PM EDT ? [facility] ?[address] ?[place] [address] ? CT Scan Report ? Signed ? Patient: Ruvalcaba,Douglas Irizarry ?MR#: MM ?? [id number] ? : 1990 ?Acct:[id number] ? Age/Sex: 34 / M ?ADM Date: 10/20/24 ? Loc: HO.ED ? Attending Dr: ? Ordering Physician: Suyapa Cuellar MD ?? Date of Service: 10/20/24 ?? Procedure(s): CT cervical spine wo IV con ?? Accession Number(s): [id number] ? cc: Name,Milton GHOSH; Suyapa Cuellar MD ? Report Number: ?? [id number]: Total DLP = ??564.00 mGy-cm ?? EXAMINATION: ?? CT CERVICAL SPINE WITHOUT CONTRAST ? CLINICAL INFORMATION: ?? Fall, neck pain ? COMPARISON: ?? None available. ? TECHNIQUE: ?? Spiral CT imaging of the cervical spine performed in axial plane ?? without contrast. Multiplanar reformatted images were constructed from ?? the axial data set. ? This CT examination was performed using dose optimization techniques as ?? appropriate, variously including the following: ?? *Automated exposure control ?? *Adjustment of mA and/or kV according to patient size (this includes ?? techniques or standardized protocols for targeted exams where dose is ?? matched to indication/reason for exam; i.e. extremities or head) ?? *Use of iterative reconstruction technique ? FINDINGS: ?? CORONAL ALIGNMENT: ?? -Normal. ? SAGITTAL ALIGNMENT: ?? -Normal. ? C1-C2 AND CRANIOCERVICAL JUNCTION: ?? -Intact and normally aligned. ? VERTEBRAL BODIES AND FACETS: ?? -No fracture, compression deformity, traumatic malalignment, or ?? suspicious bone lesion. ?? -Normal facet alignment bilaterally. ? DISCS: ?? -Mild degenerative disc changes present C4-C7. ? CENTRAL CANAL: ?? -No evidence of high-grade central canal narrowing or large disc ?? herniation allowing for modality limitations. ? PREVERTEBRAL AND PARAVERTEBRAL SOFT TISSUES: ?? -Normal. ?? -Normal thyroid gland. ? LUNG APICES: ?? -Clear bilaterally. No pneumothorax. ? CT/CT cervical spine wo IV con ?? IMPRESSION: ?? 1. No CT evidence of acute cervical spine fracture or injury. ? Electronically signed by: ??Prashanth Khanna MD ??10/20/2024 01:46 PM EDT RP ? Dictated By: ?Prashanth Khanna MD ? Signed By: ?<Electronically signed by Prashanth Khanna MD in OV> ?10/20/24 1346 ? DD/ 1123 ? TD/TT: 10/20/24 1309 ? Senior Data Analyst: ? Procedure Note Donotmikeyter, Image - 10/20/[address] [address] [address] Scan Report Signed Patient: Douglas RuvalcabaR#: [id number] : 1990Acct:[id number] Age/Sex: 34 / MADM Date: 10/20/24 Loc: HO.ED Attending Dr: Ordering Physician: Suyapa Cuellar MD Date of Service: 10/20/24 Procedure(s): CT cervical spine wo IV con Accession Number(s): [id number] cc: Milton Venegas MD; Suyapa Cuellar MD Report Number: [id number]: Total DLP = 564.00 mGy-cm EXAMINATION: CT CERVICAL SPINE WITHOUT CONTRAST CLINICAL INFORMATION: Fall, neck pain COMPARISON: None available. TECHNIQUE: Spiral CT imaging of the cervical spine performed in axial plane without contrast. Multiplanar reformatted images were constructed from the axial data set. This CT examination was performed using dose optimization techniques as appropriate, variously including the following: *Automated exposure control *Adjustment of mA and/or kV according to patient size (this includes techniques or standardized protocols for targeted exams where dose is matched to indication/reason for exam; i.e. extremities or head) *Use of iterative reconstruction technique FINDINGS: CORONAL ALIGNMENT: -Normal. SAGITTAL ALIGNMENT: -Normal. C1-C2 AND CRANIOCERVICAL JUNCTION: -Intact and normally aligned. VERTEBRAL BODIES AND FACETS: -No fracture, compression deformity, traumatic malalignment, or suspicious bone lesion. -Normal facet alignment bilaterally. DISCS: -Mild degenerative disc changes present C4-C7. CENTRAL CANAL: -No evidence of high-grade central canal narrowing or large disc herniation allowing for modality limitations. PREVERTEBRAL AND PARAVERTEBRAL SOFT TISSUES: -Normal. -Normal thyroid gland. LUNG APICES: -Clear bilaterally. No pneumothorax. CT/CT cervical spine wo IV con IMPRESSION: 1. No CT evidence of acute cervical spine fracture or injury. Electronically signed by: Prashanth Khanna MD 10/20/2024 01:46 PM EDT RP Dictated By: Prashanth Khanna MD Signed By: <Electronically signed by Prashanth Khanna MD in OV> 10/20/24 1346 DD/ 1123 TD/TT: 10/20/24 1309 Senior Data Analyst: us [facility] External Provider IMG CT PROCEDURES Edited Result - Final * CT Head w/o Contrast (10/20/2024 11:23 AM EDT) Anatomical Region Laterality Modality Head, Neck Computed Tomogra phy 10/20/2024 11:2 3 AM EDT Narrative 10/20/2024 1:46 PM EDT ? [facility] ?[address] ?[place] [address] ? CT Scan Report ? Signed ? Patient: Douglas Ruvalcaba ?MR#: MM ?? [id number] ? : 1990 ?Acct:[id number] ? Age/Sex: 34 / M ?ADM Date: 10/20/24 ? Loc: HO.ED ? Attending Dr: ? Ordering Physician: Suyapa Cuellar MD ?? Date of Service: 10/20/24 ?? Procedure(s): CT head/brain wo IV con ?? Accession Number(s): [id number] ? cc: Milton Venegas MD; Suyapa Cuellar MD ? Report Number: ?? [id number]: Total DLP = ??865.00 mGy-cm ?? EXAMINATION: ?? CT HEAD WITHOUT CONTRAST ? CLINICAL INFORMATION: ?? Headache, fall off of ladder. Head trauma. ? COMPARISON: ?? None available. ? TECHNIQUE: ?? Contiguous axial imaging was performed from the skull base to vertex ?? without intravenous administration of contrast. ? This CT examination was performed using dose optimization techniques as ?? appropriate, variously including the following: ?? *Automated exposure control ?? *Adjustment of mA and/or kV according to patient size (this includes ?? techniques or standardized protocols for targeted exams where dose is ?? matched to indication/reason for exam; i.e. extremities or head) ?? *Use of iterative reconstruction technique ? FINDINGS: ?? There is no evidence of intracranial hemorrhage or extra-axial fluid ?? collection. ?? There is no mass effect, or edema. No CT evidence of acute territorial ?? infarct. ?? Ventricles, sulci, and cisterns are normal in size and configuration ?? for patient age. No hydrocephalus. No midline shift. ?? Negative hyperdense MCA sign. Negative insular ribbon sign. ? No significant white matter abnormality. ?? Normal pituitary. ? Globes and orbital contents image normally. ?? Mild soft tissue swelling over the right frontal scalp noted. ? The paranasal sinuses, mastoid air cells, and tympanic cavities are ?? normally aerated. ?? No suspicious bony abnormalities. There are no acute fractures evident. ? CT/CT head/brain wo IV con ?? IMPRESSION: ?? 1. No acute intracranial abnormality. No fractures evident. ?? 2. Mild soft tissue swelling overlying right frontal scalp. ? Electronically signed by: ??Prashanth Khanna MD ??10/20/2024 01:43 PM EDT RP ? Dictated By: ?Prashanth Khanna MD ? Signed By: ?<Electronically signed by Prashanth Khanna MD in OV> ?10/20/24 1343 ? DD/ 1123 ? TD/TT: 10/20/24 1309 ? Senior Data Analyst: ? Procedure Note Jewels Cummings - 10/20/[address] [address] [address] Scan Report Signed Patient: Douglas Ruvalcaba#: MM [id number] : 1990Acct:[id number] Age/Sex: 34 / MADM Date: 10/20/24 Loc: HO.ED Attending Dr: Ordering Physician: Suyapa Cuellar MD Date of Service: 10/20/24 Procedure(s): CT head/brain wo IV con Accession Number(s): [id number] cc: Name,Milton GHOSH; Suyapa Cuellar MD Report Number: [id number]: Total DLP = 865.00 mGy-cm EXAMINATION: CT HEAD WITHOUT CONTRAST CLINICAL INFORMATION: Headache, fall off of ladder. Head trauma. COMPARISON: None available. TECHNIQUE: Contiguous axial imaging was performed from the skull base to vertex without intravenous administration of contrast. This CT examination was performed using dose optimization techniques as appropriate, variously including the following: *Automated exposure control *Adjustment of mA and/or kV according to patient size (this includes techniques or standardized protocols for targeted exams where dose is matched to indication/reason for exam; i.e. extremities or head) *Use of iterative reconstruction technique FINDINGS: There is no evidence of intracranial hemorrhage or extra-axial fluid collection. There is no mass effect, or edema. No CT evidence of acute territorial infarct. Ventricles, sulci, and cisterns are normal in size and configuration for patient age. No hydrocephalus. No midline shift. Negative hyperdense MCA sign. Negative insular ribbon sign. No significant white matter abnormality. Normal pituitary. Globes and orbital contents image normally. Mild soft tissue swelling over the right frontal scalp noted. The paranasal sinuses, mastoid air cells, and tympanic cavities are normally aerated. No suspicious bony abnormalities. There are no acute fractures evident. CT/CT head/brain wo IV con IMPRESSION: 1. No acute intracranial abnormality. No fractures evident. 2. Mild soft tissue swelling overlying right frontal scalp. Electronically signed by: Prashanth Khanna MD 10/20/2024 01:43 PM EDT Dictated By: Prashanth Khanna MD Signed By: <Electronically signed by Prashanth Khanna MD in OV> 10/20/24 1343 DD/ 1123 TD/TT: 10/20/24 1309 Senior Data Analyst: [facility] External Provider IMG CT PROCEDURES Edited Result - Final * CT Abdomen Pelvis w/ Contrast (10/20/2024 11:23 AM EDT) Anatomical Region Laterality Modality Body, Pelvis, Abdomen Computed T omography 10/20/2024 11:2 3 AM EDT Narrative 10/20/2024 1:32 PM EDT ? [facility] ?[address] ?[place] [address] ? CT Scan Report ? Signed ? Patient: Ruvalcaba,Douglas Irizarry ?MR#: MM ?? [id number] ? : 1990 ?Acct:[id number] ? Age/Sex: 34 / M ?ADM Date: 10/20/24 ? Loc: HO.ED ? Attending Dr: ? Ordering Physician: Suyapa Cuellar MD ?? Date of Service: 10/20/24 ?? Procedure(s): CT abdomen pelvis w IV con ?? Accession Number(s): [id number] ? cc: Name,Milton GHOSH; Suyapa Cuellar MD ? Report Number: ?? [id number]: Total DLP = 1003.00 mGy-cm ?? EXAMINATION: ??CT ABDOMEN PELVIS WITH IV CONTRAST, CT CHEST WITH IV ?? CONTRAST ? INDICATION: L flank pain, fall 6 feet ? COMPARISON: None. ? TECHNIQUE: CT scan of the chest, abdomen and pelvis was performed ?? following administration of 85 mL Omnipaque 350 using standard ?? departmental protocol. ?? Coronal and sagittal reformatted images were ?? generated and reviewed. ??Oral contrast material was not administered at ?? the request of the referring physician. ? This CT exam was performed with one or more of the following dose ?? reduction techniques: automated exposure control, adjustment of the mA ?? and/or kV according to patient size, use of iterative reconstruction ?? technique. ? DLP: 1524 mGy-cm ? CHEST: ? THYROID: The thyroid is unremarkable. ? LUNGS: There is mild dependent atelectasis bilaterally. The lungs are ?? otherwise clear. ? MEDIASTINUM: There is no mediastinal lymphadenopathy. ? ELISSA: There is no hilar lymphadenopathy. ? CARDIOVASCULATURE: The heart is normal in size. ??There is no ?? pericardial effusion. ??The thoracic aorta is normal in caliber. ? DEGREE OF CORONARY CALCIFICATION: ??none ? PLEURA: ??There is no pleural effusion. ??No pneumothorax. ? MAIN AIRWAYS: The mainstem bronchi and proximal branches are patent. ? AXILLA: There is no axillary lymphadenopathy. ? SOFT TISSUES: ??Unremarkable. ? BONES: ??The bones are intact. ? ABDOMEN: ? LIVER: ??The liver is normal in size and contour. ??No liver mass is ?? identified. ??The hepatic and portal veins are patent. ? GALLBLADDER / BILE DUCTS: ??The gallbladder is unremarkable. There is no ?? intra or extrahepatic biliary ductal dilatation. ? SPLEEN: The spleen is normal in size. No focal splenic lesion is ?? identified. ? PANCREAS: The pancreas is unremarkable in appearance. ? ADRENAL GLANDS: Within normal limits. ? KIDNEYS/RETROPERITONEUM: No renal calculi are identified. There is no ?? hydronephrosis. ??No renal masses are identified. ? LYMPH NODES: ??No abdominal or pelvic lymphadenopathy. ? VASCULATURE: ??The abdominal aorta is normal in caliber. ? MESENTERY/PERITONEUM: No free fluid. No masses. ??There is no free ?? intraperitoneal gas. ? STOMACH: ??The stomach is collapsed, limiting evaluation. ? SMALL BOWEL: ?? The small bowel is normal in caliber. ? COLON: ??The colon is unremarkable. ? APPENDIX: ??Normal. ? URINARY BLADDER/PELVIC ORGANS: The urinary bladder is unremarkable. ? The prostate is normal in size. ? BONES / SOFT TISSUES: ??There is a fat-containing left inguinal hernia. ?? The bones are intact. ? CT/CT abdomen pelvis w IV con ?? IMPRESSION: ?? No evidence of traumatic injury to the chest, abdomen, or pelvis. ? Electronically signed by: ??Joe Obrien MD ??10/20/2024 01:29 PM EDT ?? RP ? Dictated By: ?Joe Obrien MD ? Signed By: ?<Electronically signed by Joe Obrien MD in OV> ?10/20/24 1329 ? DD/ 1123 ? TD/TT: 10/20/24 1309 ? Senior Data Analyst: ? Procedure Note Donotuseinterpreter, Image - 10/20/[address] [address] [address] Scan Report Signed Patient: Douglas RuvalcabaR#: MM [id number] : 1990Acct:[id number] Age/Sex: 34 / MADM Date: 10/20/24 Loc: HO.ED Attending Dr: Ordering Physician: Suyapa Cuellar MD Date of Service: 10/20/24 Procedure(s): CT abdomen pelvis w IV con Accession Number(s): [id number] cc: Theo,Milton GHOSH; Suyapa Cuellar MD Report Number: [id number]: Total DLP = 1003.00 mGy-cm EXAMINATION: CT ABDOMEN PELVIS WITH IV CONTRAST, CT CHEST WITH IV CONTRAST INDICATION: L flank pain, fall 6 feet COMPARISON: None. TECHNIQUE: CT scan of the chest, abdomen and pelvis was performed following administration of 85 mL Omnipaque 350 using standard departmental protocol. Coronal and sagittal reformatted images were generated and reviewed. Oral contrast material was not administered at the request of the referring physician. This CT exam was performed with one or more of the following dose reduction techniques: automated exposure control, adjustment of the mA and/or kV according to patient size, use of iterative reconstruction technique. DLP: 1524 mGy-cm CHEST: THYROID: The thyroid is unremarkable. LUNGS: There is mild dependent atelectasis bilaterally. The lungs are otherwise clear. MEDIASTINUM: There is no mediastinal lymphadenopathy. ELISSA: There is no hilar lymphadenopathy. CARDIOVASCULATURE: The heart is normal in size. There is no pericardial effusion. The thoracic aorta is normal in caliber. DEGREE OF CORONARY CALCIFICATION: none PLEURA: There is no pleural effusion. No pneumothorax. MAIN AIRWAYS: The mainstem bronchi and proximal branches are patent. AXILLA: There is no axillary lymphadenopathy. SOFT TISSUES: Unremarkable. BONES: The bones are intact. ABDOMEN: LIVER: The liver is normal in size and contour. No liver mass is identified. The hepatic and portal veins are patent. GALLBLADDER / BILE DUCTS: The gallbladder is unremarkable. There is no intra or extrahepatic biliary ductal dilatation. SPLEEN: The spleen is normal in size. No focal splenic lesion is identified. PANCREAS: The pancreas is unremarkable in appearance. ADRENAL GLANDS: Within normal limits. KIDNEYS/RETROPERITONEUM: No renal calculi are identified. There is no hydronephrosis. No renal masses are identified. LYMPH NODES: No abdominal or pelvic lymphadenopathy. VASCULATURE: The abdominal aorta is normal in caliber. MESENTERY/PERITONEUM: No free fluid. No masses. There is no free intraperitoneal gas. STOMACH: The stomach is collapsed, limiting evaluation. SMALL BOWEL: The small bowel is normal in caliber. COLON: The colon is unremarkable. APPENDIX: Normal. URINARY BLADDER/PELVIC ORGANS: The urinary bladder is unremarkable. The prostate is normal in size. BONES / SOFT TISSUES: There is a fat-containing left inguinal hernia. The bones are intact. CT/CT abdomen pelvis w IV con IMPRESSION: No evidence of traumatic injury to the chest, abdomen, or pelvis. Electronically signed by: Joe Obrien MD 10/20/2024 01:29 PM EDT Dictated By: Joe Obrien MD Signed By: <Electronically signed by Joe Obrien MD in OV> 10/20/24 1329 DD/ 1123 TD/TT: 10/20/24 1309 Senior Data Analyst: [facility] External Provider IMG CT PROCEDURES Edited Result - Final * XR Ankle 2 Views Left (10/20/2024 11:23 AM EDT) Anatomical Region Laterality Modality Lower Extremities, Ankle Left Radiogr aphic Imaging 10/20/2024 11:2 3 AM EDT Narrative 10/20/2024 12:17 PM EDT ? [facility] ?[address] ?[place] [address] ?XRay Report ? Signed ? Patient: Ruvalcaba,Douglas Irizarry ?MR#: MM ?? [id number] ? : 1990 ?Acct:[id number] ? Age/Sex: 34 / M ?ADM Date: 04/14/25 ? Loc: HO.ED ? Attending Dr: ? Ordering Physician: Suyapa Cuellar MD ?? Date of Service: 10/20/24 ?? Procedure(s): XR ankle LT 2V ?? Accession Number(s): [id number] ? cc: Name,Milton GHOSH; Suyapa Cuellar MD ? EXAMINATION: ?? XR ANKLE, LEFT ? CLINICAL INFORMATION: ?? fall, pain ? COMPARISON: ?? None available. ? TECHNIQUE: ?? AP, lateral, and mortise views of the left ankle. ? FINDINGS: ?? Prior lateral plate and screw fixation of the distal fibular ?? metadiaphysis. No hardware loosening or abnormality. ?? No acute fracture or dislocation. Normal alignment. ?? The mortise is intact. The talar dome is normal. ?? The subtalar joints and calcaneus appear normal. ? There is no ankle joint effusion. ? There is normal soft tissue. ? XR/XR ankle LT 2V ?? IMPRESSION: ?? No acute bony or soft tissue abnormalities. ? Electronically signed by: ??Prashanth Khanna MD ??10/20/2024 12:14 PM EDT RP ? Dictated By: ?Prashanth Khanna MD ? Signed By: ?<Electronically signed by Prashanth Khanna MD in OV> ?10/20/24 1214 ? DD/ 1123 ? TD/TT: 10/20/24 1200 ? Senior Data Analyst: ? Procedure Note Jewels Cummings - 10/20/[address] [address] XRay Report Signed Patient: Douglas RuvalcabaR#: [id number] : 1990Acct:[id number] Age/Sex: 34 / MADM Date: 10/20/24 Loc: HO.ED Attending Dr: Ordering Physician: Suyapa Cuellar MD Date of Service: 10/20/24 Procedure(s): XR ankle LT 2V Accession Number(s): [id number] cc: Milton Venegas MD; Suyapa Cuellar MD EXAMINATION: XR ANKLE, LEFT CLINICAL INFORMATION: fall, pain COMPARISON: None available. TECHNIQUE: AP, lateral, and mortise views of the left ankle. FINDINGS: Prior lateral plate and screw fixation of the distal fibular metadiaphysis. No hardware loosening or abnormality. No acute fracture or dislocation. Normal alignment. The mortise is intact. The talar dome is normal. The subtalar joints and calcaneus appear normal. There is no ankle joint effusion. There is normal soft tissue. XR/XR ankle LT 2V IMPRESSION: No acute bony or soft tissue abnormalities. Electronically signed by: Prashanth Khanna MD 10/20/2024 12:14 PM EDT Dictated By: Prashanth Khanna MD Signed By: <Electronically signed by Prashanth Khanna MD in OV> 10/20/24 1214 DD/ 1123 TD/TT: 10/20/24 1200 Senior Data Analyst: [facility] External Provider IMG XR PROCEDURES Edited Result - Final * XR Knee 3 Views Left (10/20/2024 11:23 AM EDT) Anatomical Region Laterality Modality Lower Extremities, Knee Left Radiogra phic Imaging 10/20/2024 11:2 3 AM EDT Narrative 10/20/2024 12:16 PM EDT ? [facility] ?[address] ?[place] [address] ?XRay Report ? Signed ? Patient: RuvalcabaDouglas Irizarry ?MR#: MM ?? [id number] ? : 1990 ?Acct:[id number] ? Age/Sex: 34 / M ?ADM Date: 04/14/25 ? Loc: HO.ED ? Attending Dr: ? Ordering Physician: Suyapa Cuellar MD ?? Date of Service: 10/20/24 ?? Procedure(s): XR knee LT 3V ?? Accession Number(s): [id number] ? cc: Milton Venegas MD; Suyapa Cuellar MD ? EXAMINATION: ??XR KNEE 3 VIEWS LEFT ? HISTORY: fall, pain ? COMPARISON: There are no prior studies available for comparison. ? FINDINGS: ? Four views of the left knee are submitted. ??Osseous mineralization is ?? normal. ??There is no fracture or dislocation. ??The joint spaces are ?? preserved. ??The soft tissues are unremarkable. There is no joint ?? effusion. ? XR/XR knee LT 3V ?? IMPRESSION: ? Unremarkable examination of the left knee. ? Electronically signed by: ??Joe Obrien MD ??10/20/2024 12:14 PM EDT ? Dictated By: ?Joe Obrien MD ? Signed By: ?<Electronically signed by Joe Obrien MD in OV> ?10/20/24 1214 ? DD/ 1123 ? TD/TT: 10/20/24 1200 ? Senior Data Analyst: ? Procedure Note Vusuzanneedgaraaron, Image - 10/20/2024 [place] [address] XRay Report Signed Patient: Douglas RuvalcabaR#: [id number] : 1990Acct:[id number] Age/Sex: 34 / MADM Date: 10/20/24 Loc: HO.ED Attending Dr: Ordering Physician: Suyapa Cuellar MD Date of Service: 10/20/24 Procedure(s): XR knee LT 3V Accession Number(s): [id number] cc: Milton Venegas MD; Suyapa Cuellar MD EXAMINATION: XR KNEE 3 VIEWS LEFT HISTORY: fall, pain COMPARISON: There are no prior studies available for comparison. FINDINGS: Four views of the left knee are submitted. Osseous mineralization is normal. There is no fracture or dislocation. The joint spaces are preserved. The soft tissues are unremarkable. There is no joint effusion. XR/XR knee LT 3V IMPRESSION: Unremarkable examination of the left knee. Electronically signed by: Joe Obrien MD 10/20/2024 12:14 PM EDT Dictated By: Joe Obrien MD Signed By: <Electronically signed by Joe Obrien MD in OV> 10/20/24 1214 DD/ 1123 TD/TT: 10/20/24 1200 Senior Data Analyst: us [facility] External Provider IMG XR PROCEDURES Edited Result - Final * XR Hip 2 or 3 Views Left (10/20/2024 11:23 AM EDT) Anatomical Region Laterality Modality Lower Extremities, Hip Left Radiograp hic Imaging 10/20/2024 11:2 3 AM EDT Narrative 10/20/2024 12:15 PM EDT ? [facility] ?[address] ?[place] [address] ?XRay Report ? Signed ? Patient: JordonDouglas ?MR#: MM ?? [id number] ? : 1990 ?Acct:[id number] ? Age/Sex: 34 / M ?ADM Date: 10/20/24 ? Loc: HO.ED ? Attending Dr: ? Ordering Physician: Suyapa Cuellar MD ?? Date of Service: 10/20/24 ?? Procedure(s): XR hip LT min 2V ?? Accession Number(s): [id number] ? cc: Milton Venegas MD; Suyapa Cuellar MD ? EXAMINATION: ??XR HIP 2 OR MORE VIEWS LEFT, XR FEMUR 2 VIEWS LEFT ? HISTORY: fall, pain ? COMPARISON: There are no prior studies for comparison. ? FINDINGS: ??A single AP view of the pelvis, 2 views of the left hip, and ?? AP and lateral views of the left femur are submitted. Osseous ?? mineralization is normal. There is no fracture or dislocation. The hip ?? and knee joint spaces are maintained. The soft tissues are unremarkable. ? XR/XR hip LT min 2V ?? IMPRESSION: ?? No evidence of fracture of the left hip or femur. ? Electronically signed by: ??Joe Obrien MD ??10/20/2024 12:12 PM EDT ?? RP ? Dictated By: ?Joe Obrien MD ? Signed By: ?<Electronically signed by Joe Obrien MD in OV> ?10/20/24 1212 ? DD/ 1123 ? TD/TT: 10/20/24 1200 ? Senior Data Analyst: ? Procedure Note Emiliano, Jewels - 10/20/[address] [place] [address] XRay Report Signed Patient: Douglas RuvalcabaR#: [id number] : 1990Acct:[id number] Age/Sex: 34 / MADM Date: 10/20/24 Loc: HO.ED Attending Dr: Ordering Physician: Suyapa Cuellar MD Date of Service: 10/20/24 Procedure(s): XR hip LT min 2V Accession Number(s): [id number] cc: Milton Venegas MD; Suyapa Cuellar MD EXAMINATION: XR HIP 2 OR MORE VIEWS LEFT, XR FEMUR 2 VIEWS LEFT HISTORY: fall, pain COMPARISON: There are no prior studies for comparison. FINDINGS: A single AP view of the pelvis, 2 views of the left hip, and AP and lateral views of the left femur are submitted. Osseous mineralization is normal. There is no fracture or dislocation. The hip and knee joint spaces are maintained. The soft tissues are unremarkable. XR/XR hip LT min 2V IMPRESSION: No evidence of fracture of the left hip or femur. Electronically signed by: Joe Obrien MD 10/20/2024 12:12 PM EDT Dictated By: Joe Obrien MD Signed By: <Electronically signed by Joe Obrien MD in OV> 10/20/24 1212 DD/ 1123 TD/TT: 10/20/24 1200 Senior Data Analyst: [facility] External Provider IMG XR PROCEDURES Edited Result - Final * XR Femur 2+ Views Left (10/20/2024 11:23 AM EDT) Anatomical Region Laterality Modality Lower Extremities, Femur Left Radiogr aphic Imaging 10/20/2024 11:2 3 AM EDT Narrative 10/20/2024 12:15 PM EDT ? [facility] ?[address] ?[place] [address] ?XRay Report ? Signed ? Patient: Ruvalcaba,Douglas Irizarry ?MR#: MM ?? [id number] ? : 1990 ?Acct:[id number] ? Age/Sex: 34 / M ?ADM Date: 04/14/25 ? Loc: HO.ED ? Attending Dr: ? Ordering Physician: Suyapa Cuellar MD ?? Date of Service: 10/20/24 ?? Procedure(s): XR femur LT 2V ?? Accession Number(s): [id number] ? cc: Name,Milton GHOSH; Suyapa Cuellar MD ? EXAMINATION: ??XR HIP 2 OR MORE VIEWS LEFT, XR FEMUR 2 VIEWS LEFT ? HISTORY: fall, pain ? COMPARISON: There are no prior studies for comparison. ? FINDINGS: ??A single AP view of the pelvis, 2 views of the left hip, and ?? AP and lateral views of the left femur are submitted. Osseous ?? mineralization is normal. There is no fracture or dislocation. The hip ?? and knee joint spaces are maintained. The soft tissues are unremarkable. ? XR/XR femur LT 2V ?? IMPRESSION: ?? No evidence of fracture of the left hip or femur. ? Electronically signed by: ??Joe Obrien MD ??10/20/2024 12:12 PM EDT ? Dictated By: ?Joe Obrien MD ? Signed By: ?<Electronically signed by Joe Obrien MD in OV> ?10/20/24 1212 ? DD/ 1123 ? TD/TT: 10/20/24 1200 ? Senior Data Analyst: ? Procedure Note Jewels Cummings - 10/20/2024 [place] [address] XRay Report Signed Patient: Douglas RuvalcabaR#: [id number] : 1990Acct:[id number] Age/Sex: 34 / MADM Date: 10/20/24 Loc: HO.ED Attending Dr: Ordering Physician: Suyapa Cuellar MD Date of Service: 10/20/24 Procedure(s): XR femur LT 2V Accession Number(s): [id number] cc: Milton Venegas MD; Suyapa Cuellar MD EXAMINATION: XR HIP 2 OR MORE VIEWS LEFT, XR FEMUR 2 VIEWS LEFT HISTORY: fall, pain COMPARISON: There are no prior studies for comparison. FINDINGS: A single AP view of the pelvis, 2 views of the left hip, and AP and lateral views of the left femur are submitted. Osseous mineralization is normal. There is no fracture or dislocation. The hip and knee joint spaces are maintained. The soft tissues are unremarkable. XR/XR femur LT 2V IMPRESSION: No evidence of fracture of the left hip or femur. Electronically signed by: oJe Obrien MD 10/20/2024 12:12 PM EDT RP Dictated By: Joe Obrien MD Signed By: <Electronically signed by Joe Obrien MD in OV> 10/20/24 1212 DD/ 1123 TD/TT: 10/20/24 1200 Senior Data Analyst: [facility] External Provider IMG XR PROCEDURES Edited Result - Final documented in this encounter Visit Diagnoses Not on filedocumented in this encounter Additional Health Concerns Assessment Noted Time PHQ-9 Depression Total Score: 19 09/10/ 025 3:44 PM EST documented as of this encounter Care Teams Credit Product Analyst Relationship Specialty Start Date End Date Name, MD Milton [address] [place] [address] PCP - General Internal Medicine 01/28/24 documented as of this encounter
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
== END 2024-10-20 14:39 | disposition home or self-care (01) ==
PROVIDERS: Emergency Provider Emergency Medicine; PCP Internal Medicine Geriatric Medicine
DX: S30.0XXA Contusion of lower back and pelvis, initial encounter (principal); R51.9 Headache, unspecified; M54.2 Cervicalgia; R10.2 Pelvic and perineal pain; W11.XXXA Fall on and from ladder, initial encounter; S97.82XA Crushing injury of left foot, initial encounter; Y93.9 Activity, unspecified; Y92.9 Unspecified place or not applicable; Y99.8 Other external cause status
CPT/HCPCS: 36415; 70450; 71260; 72125; 72170; 73502; 73552; 73562; 73600; 74177; 80048; 80076; 85025; 96374; 96376; 99284; J2270; Q9967

== ENCOUNTER → 2024-10-20 11:23 | Outpatient (BNV) | payer MEDICAID, SELFPAY | PROVIDERS: Emergency Provider Emergency Medicine; PCP Internal Medicine Geriatric Medicine; Visit Provider Radiology Diagnostic Radiology | DX: R10.812 Left upper quadrant abdominal tenderness (principal); M54.2 Cervicalgia; R51.9 Headache, unspecified; M25.552 Pain in left hip; M25.562 Pain in left knee; M25.572 Pain in left ankle and joints of left foot | CPT/HCPCS: 70450; 71260; 72125; 73502; 73552; 73562; 73600; 74177 ==

== ENCOUNTER → 2024-10-22 11:01 | Outpatient (BNVA) | payer OTHER, SELFPAY | PROVIDERS: PCP Internal Medicine Geriatric Medicine; Visit Provider Physician Assistant Medical | DX: S10.83XA Contusion of other specified part of neck, initial encounter (principal); S20.229A Contusion of unspecified back wall of thorax, initial encounter; S20.212A Contusion of left front wall of thorax, initial encounter; S30.1XXA Contusion of abdominal wall, initial encounter; S70.02XA Contusion of left hip, initial encounter; S80.02XA Contusion of left knee, initial encounter; S90.02XA Contusion of left ankle, initial encounter; W11.XXXA Fall on and from ladder, initial encounter | CPT/HCPCS: 73030; 99202 ==

== ENCOUNTER → 2024-10-29 10:35 | Outpatient (BNVA) | payer OTHER, SELFPAY | PROVIDERS: PCP Internal Medicine Geriatric Medicine; Visit Provider Physician Assistant Medical | DX: S46.911A Strain of unspecified muscle, fascia and tendon at shoulder and upper arm level, right arm, initial encounter (principal); S10.83XA Contusion of other specified part of neck, initial encounter; S20.229A Contusion of unspecified back wall of thorax, initial encounter; S20.212A Contusion of left front wall of thorax, initial encounter; S30.1XXA Contusion of abdominal wall, initial encounter; S70.02XA Contusion of left hip, initial encounter; S80.02XA Contusion of left knee, initial encounter; S90.02XA Contusion of left ankle, initial encounter; W11.XXXA Fall on and from ladder, initial encounter | CPT/HCPCS: 99213 ==

== ENCOUNTER 2024-11-10 19:14 | Outpatient (REF) | payer OTHER, MEDICAID, SELFPAY ==
--- NOTE | ~2024-11-10 | MR_ITS ---
EXAMINATION: MRI RIGHT SHOULDER WITHOUT CONTRAST HISTORY: WEAKNESS, PAIN POST FALL COMPARISON: Correlation is made with plain films of the right shoulder dated 10/22/2024. TECHNIQUE: Coronal T1, T2, and fat suppressed T2, axial fat suppressed proton density, and sagittal T2 weighted MR images of the right shoulder were obtained. FINDINGS: Bone Marrow: There are cystic changes in the humeral head adjacent to the greater tuberosity. Joint effusion: There is no glenohumeral joint effusion. Glenohumeral joint: The glenohumeral joint is maintained. AC joint: There is degenerative change of the AC joint with narrowing and subchondral marrow edema. Supraspinatus muscle/tendon: There is increased signal intensity along the joint surface of the supraspinatus tendon approximately 10 mm from its insertion on the greater tuberosity of the humerus, consistent with a partial tear. In addition, there is a small focus of fluid signal intensity at the insertion of the tendon involving posterior fibers, consistent with a small full-thickness tear. There is trace fluid in the subdeltoid bursa. There is no tendon retraction. Normal muscle bulk. Infraspinatus muscle/tendon: The infraspinatus tendon is intact. Normal muscle bulk. Teres minor muscle/tendon: The teres minor tendon is intact. Normal muscle bulk. Subscapularis muscle/tendon: The subscapularis tendon is intact. Normal muscle bulk. Biceps tendon: The biceps tendon is intact and normally located. Glenoid labrum: The glenoid labrum is grossly unremarkable in appearance, although evaluation is limited by lack of a joint effusion. Other findings: None MR/MR shoulder RT wo con IMPRESSION: Joint surface partial tear of the supraspinatus tendon. Small full-thickness tear of posterior fibers at the insertion of the supraspinatus tendon. Electronically signed by: Joe Obrien MD 11/11/2024 07:29 AM EDT
--- OUTSIDE RECORDS SUMMARY | 2024-11-10 19:22 | XMS_ITS ---
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 Case Team Name Relationship Phone Glenis Mitchell (Responsible Staff) [phone] Continued Care and Services Coordination
--- OUTSIDE RECORDS SUMMARY | 2024-11-10 19:22 | XMS_ITS ---
Author Organization [employer] Address [address] [facility] [address] [place] [address] Care Team Providers Care Customer Experience Associate Name Role Phone Name, Milton GHOSH Primary Care Provider [phone] CM Complex Status:Outreach In Progress (Enrolling) Start date:10/21/2024 Enrollment reason:ADT Feed Overview ED- [place] [facility] [place]. Case Team Name Relationship Phone Miguel Horowitz RN Registered Nurse(Responsible St aff) [phone] Continued Care and Services Coordination
--- OUTSIDE RECORDS SUMMARY | 2024-11-10 19:23 | XMS_ITS | Clinical Summary ---
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 Medicine 01/28/24
== END 2024-11-10 19:15 | disposition home or self-care (01) ==
LOC: HO.MRI 19:14
PROVIDERS: Visit Provider Internal Medicine
DX: M25.511 Pain in right shoulder (principal)
CPT/HCPCS: 73221

== ENCOUNTER → 2024-11-10 19:33 | Outpatient (BNV) | payer OTHER, MEDICAID, SELFPAY | PROVIDERS: Visit Provider Radiology Diagnostic Radiology | DX: S46.012A Strain of muscle(s) and tendon(s) of the rotator cuff of left shoulder, initial encounter (principal) | CPT/HCPCS: 73221 ==

== ENCOUNTER → 2024-11-25 11:05 | Outpatient (BNVA) | payer OTHER, SELFPAY | PROVIDERS: Visit Provider Physician Assistant Medical | DX: S46.011D Strain of muscle(s) and tendon(s) of the rotator cuff of right shoulder, subsequent encounter (principal); S39.012D Strain of muscle, fascia and tendon of lower back, subsequent encounter; W11.XXXD Fall on and from ladder, subsequent encounter | CPT/HCPCS: 99213 ==

== ENCOUNTER 2024-12-02 10:00 | Outpatient (RCR) | payer OTHER, MEDICAID, SELFPAY ==
--- NOTE | 2024-11-11 16:55 | MHC.PT.EP ---
[facility] [place] Office [place] Office [place] Office [address] Naveed Cho [address] [phone] F: [phone] F: [phone] F: [phone] F: [phone] Physical Therapy Plan of Care Date of Evaluation: 11/11/24 Date of Surgery: NA Diagnosis: SHOULDER PAIN Assessment: Pt IS 34 YO M REFERRED TO PT FROM WITH CERVICAL, THORACIC, R SHLDER INJURY. AFTER FALLING OFF LADDER AT WORK (10/20/24). HAD MRI YESTERDAY +R SUPRASPINATUS TENDON TEARS. PRESENTS TO PT WITH PAIN, LIMITED R SHLDER ROM, LIMITED CERV ROM, LIMITED R SHLDER AND R UE STRENGTH. THIS PT SPOKE WITH REFERRING PROVIDER RE ORTHO REFERRAL (SHE REPORTS ALREADY WROTE IT..Pt STOPPED DOWN TO AFTER PT EVAL TO REQUEST PAIN MED. Pt SHOULD BENEFIT FROM PT TO HELP WITH PAIN RELIEF, ROM AND STRENGTHENING WHETHER HE HAS SURGERY OR NOT. OF NOTE, Pt MAY BENEFIT FROM OT CONSULT WELL (REPORTS R HAND PAIN/LIMITED ROM AND STRENGTH..ALSO C/O NECK PAIN WITH LIMITED ROM, SO THERE MAY BE SOME REFERRAL OF SXS) Frequency and Duration: The patient will be seen 2X/WK X 4-6 WKS Short Term Goals: 1. INCREASE POSTURE AWARENESS AND AWARENESS SHLDER CARE 2. IMPROVED SLEEP REPORTED 3. CENTRALIZED SXS R UE 4. I HEP WITH DC EX PLAN Long-Term Goals: 1. INCREASED R SHLDER ROM TO FUNCTIONAL LEVEL 2. INCREASED R UE STRENGTH 1-2 MM GRADES T/O 3. RTW 4. DECREASED R SHLDER PAIN AT LEAST 50% WITH ADLS Treatment Plan: Modalities to reduce pain, spasms and effusion. Manual therapy to restore motion and function. Therapeutic exercise to improve strength and flexibility. Neuromuscular re-education for posture and balance. Therapeutic activities to return to functional activities of daily living. Electronically signed by: Please sign and return to therapist. Thank you for your referral.
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
== END 2024-12-10 12:09 | disposition home or self-care (01) ==
LOC: HO.PT 10:00
PROVIDERS: PCP Internal Medicine Geriatric Medicine; Visit Provider Physician Assistant Medical
DX: S29.9XXD Unspecified injury of thorax, subsequent encounter (principal); S49.91XD Unspecified injury of right shoulder and upper arm, subsequent encounter; T14.90XD Injury, unspecified, subsequent encounter
CPT/HCPCS: 97110; 97140; 97162; 97535

== ENCOUNTER 2024-12-03 08:37 | Outpatient (AMB) | payer MEDICAID, SELFPAY ==
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
--- OUTSIDE RECORDS SUMMARY | 2024-12-03 08:53 | XMS_ITS ---
Author Organization [employer] Address [address] [place] [address] [address] [place] [address] Care Team Providers Care Metal Molder Name Role Phone Name, Milton GHOSH Primary Care Provider [phone] CM Complex Status:Enrolled (Active) Start date:10/21/2024 Enrollment date:11/18/2024 Enrollment reason:ADT Feed Overview ED- Pt went [place] [facility] on 10/20/24. Case Team Name Relationship Phone Miguel Horowitz RN(Responsible Staff) Registered Alysha colbert [phone] Continued Care and Services Coordination
== END 2024-12-03 09:55 | disposition home or self-care (01) ==
PROVIDERS: PCP Internal Medicine Geriatric Medicine; Visit Provider Physician Assistant
DX: M75.101 Unspecified rotator cuff tear or rupture of right shoulder, not specified as traumatic (principal)
CPT/HCPCS: 99214

== ENCOUNTER → 2024-12-03 08:37 | Outpatient (BNVA) | payer MEDICAID, SELFPAY | PROVIDERS: PCP Internal Medicine Geriatric Medicine; Visit Provider Physician Assistant | DX: M75.101 Unspecified rotator cuff tear or rupture of right shoulder, not specified as traumatic (principal) | CPT/HCPCS: 99212 ==

== ENCOUNTER → 2024-12-18 11:39 | Outpatient (BNVA) | payer OTHER, SELFPAY | PROVIDERS: PCP Internal Medicine Geriatric Medicine; Visit Provider Physician Assistant Medical | DX: M75.101 Unspecified rotator cuff tear or rupture of right shoulder, not specified as traumatic (principal); S46.811D Strain of other muscles, fascia and tendons at shoulder and upper arm level, right arm, subsequent encounter; W11.XXXD Fall on and from ladder, subsequent encounter | CPT/HCPCS: 99213 ==

== ENCOUNTER 2024-12-23 06:37 | Day surgery (SDC) | payer OTHER, SELFPAY ==
--- OUTSIDE RECORDS SUMMARY | 2024-12-16 18:25 | XMS_ITS ---
Author Organization [employer] Address [address] [place] [address] [address] [place] [address] Care Team Providers Care Analysis Intern Name Role Phone Name, Milton GHOSH Primary Care Provider [phone] CM Complex Status:Enrolled (Active) Start date:10/21/2024 Enrollment date:11/18/2024 Enrollment reason:ADT Feed Overview ED- [place] [facility] [place]. Case Team Name Relationship Phone Miguel Horowitz RN(Responsible Staff) Registered Alysha colbert [phone] Continued Care and Services Coordination
[2024-12-18 15:11] VITALS: BMI 30.1
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
[2024-12-23] VITALS (7 sets, daily range): BP systolic 123–143; BP diastolic 68–84; PULSE 57–84; RESP 16–18; TEMP 36.2–36.6; O2SAT 93–98; BMI 31.6
--- NOTE | 2024-12-23 07:21 | MHC.SHP ---
Pre-Procedural Eval Section A - 24 Hr Update-Section A only Date of Service: 12/23/24 The patient is an INPATIENT: No Changes since office visit: No Cold of Flu in the past 2 weeks, No New Medical Problems, No Changes in Medication and No Patient answered all questions The patient has been examined within 24 hours of the surgical procedure. The History & Physical has been completed within 30 days and I have reviewed it.: Yes Section B - Complete if H&P > 30 days Chief Complaint: Unspecified rotator cuff tear or rupture of right Allergies: Allergies Allergy/AdvReac Type Severity Reaction Status Date / Time No Known Allergies Allergy Verified 12/23/24 07:16 Plan I have reviewed the history and physical and performed a pertinent physical examination on my patient. No changes have occurred unless specified. Time Spent With Patient Time: Total time managing care of this patient today ____ minutes.
[2024-12-23] MEDS: Lactated Ringers 1,000 ML 100 ML IVCONT (07:55)
[2024-12-23] MEDS: ceFAZolin Sodium/Dextrose,Iso 2 GM/50 ML PIGGYBACK IV (10:05)
--- NOTE | 2024-12-23 11:21 | PM.OP ---
Brief Operative Note Date of Service: 12/23/24 Pre-op diagnosis: Right RTC tear Post-op diagnosis: same Procedure: Right RTC repair Implants: S&N medial helacoil x 2 Lateral helacoil x 2 Regeneten Medium patch Surgeon: Francisco J Caceres MD Anesthesia: GETA and regional Was an General Lot Attendant used for this Procedure?: Yes General Lot Attendant: Mumtaz Alanis Estimated blood loss (mL): 25 IV fluids (mL): 1,000 Pathology: none sent Condition: stable Disposition: PACU
--- NOTE | 2024-12-23 11:26 | P.OP_ITS ---
Operative Note Operative Note Date of Service: 12/23/24 Narrative: Date of Service: 12/23/24 Pre-op diagnosis: Right RTC tear Post-op diagnosis: same Procedure: Right RTC repair Implants: S&N medial helacoil x 2 Lateral helacoil x 2 Regeneten Medium patch Surgeon: Francisco J Caceres MD Anesthesia: GETA and regional Was an Hosted Services Analyst used for this Procedure?: Yes Hosted Services Analyst: Mumtaz Alanis Estimated blood loss (mL): 25 IV fluids (mL): 1,000 Pathology: none sent Condition: stable Disposition: PACU Procedure in detail: Patient was brought to the operating room and placed the the beach chair position. All bony prominences were well padded and the limb was prepped and draped in standard sterile fashion. A time out was called to identify proper site, proper procedure and proper surgeon. IV antibiotics per weight were administered. I began by making a posterolateral stab incision with a 15 blade. A blunt trochar was placed into the glenohumeral joint and I insufflated the joint with saline and a 30 degree arthroscope was placed.The glenohumeral joint was pristine. There were no cartilage changes. The subscapularis, biceps tendon and labrum were all normal. The only + finding was a high grade undersurface partial tear of the supraspinatus. This was marked with a spinal needle from outside in. I then removed the trochar and entered the subacromial space. A direct lateral portal was then established and I performed a bursectomy. The cuff was then examined. There was partial bursal sided fraying at the level the spinal needle was inserted to esmer the undersurface tear. This was debrided with a shaver and there was a high grade, nearly full thickness tear of the supraspinatus. This was debrided further with a shaver. The tear was mobile and crescentic. I placed two medial row double loaded anchors via superior percutaneous insertion sites after using a tap just adjacent to the articular cartilage. I then brought the suture limbs ( 8) through the medial cuff. I then debrided the bare area down to bleeding bone with a small arnol and, using a cross bridge configuration, brought 4 limbs to each of two lateral 5.0 anchors. This re-approximated the cuff anatomy anatomically. Once I was satisfied with the repair final images were captured. I then inserted a medium Regeneten patch via one of the two lateral portals. 3 PEEK magali were used to secure the patch medially and two PEEK bone magali laterally were placed. I was satisfied with the repair and the patch. A 5mm anterior subacromial decompression was performed with a spherical arnol. Final pictures were taken and I removed all instrumentation. Portals were closed with nylon. Patient was placed in an abduction sling, extubated and brought to the recovery room in stable condition. There were no known complications.
[2024-12-23] MEDS: Ondansetron ODT 4 MG TAB.RAPDIS TRANSLINGU (13:17)
[2024-12-23] MEDS: oxyCODONE HCl Immed Release 5 MG TABLET PO (13:28)
== END 2024-12-23 13:50 | disposition home or self-care (01) ==
PROVIDERS: PCP Internal Medicine Geriatric Medicine; Visit Provider Orthopaedic Surgery
PROC: (CPT 29827; principal; 2024-12-23 09:30)
DX: S46.011A Strain of muscle(s) and tendon(s) of the rotator cuff of right shoulder, initial encounter (principal); M25.511 Pain in right shoulder; R20.0 Anesthesia of skin; R20.2 Paresthesia of skin; W11.XXXA Fall on and from ladder, initial encounter; Y93.9 Activity, unspecified; Y92.69 Other specified industrial and construction area as the place of occurrence of the external cause; Y99.0 Civilian activity done for income or pay; Z86.718 Personal history of other venous thrombosis and embolism; Z87.828 Personal history of other (healed) physical injury and trauma; Z79.1 Long term (current) use of non-steroidal anti-inflammatories (NSAID); Z79.899 Other long term (current) drug therapy; Z98.890 Other specified postprocedural states
CPT/HCPCS: 29827; 29826; C1713; C1763; J0131; J0171; J0665; J0690; J1100; J2003; J2250; J2405; J2704; J3010

== ENCOUNTER → 2024-12-23 06:37 | Outpatient (BNV) | payer OTHER, SELFPAY | PROVIDERS: PCP Internal Medicine Geriatric Medicine; Visit Provider Orthopaedic Surgery | DX: S46.011A Strain of muscle(s) and tendon(s) of the rotator cuff of right shoulder, initial encounter (principal) | CPT/HCPCS: 29827 ==

== ENCOUNTER 2025-01-01 14:02 | Outpatient (AMB) | payer OTHER, SELFPAY ==
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
--- OUTSIDE RECORDS SUMMARY | 2025-01-01 16:58 | XMS_ITS ---
Author Organization [employer] Address [address] [place] [address] [address] [place] [address] Care Team Providers Care Bleach Chlorinator Name Role Phone Name, Milton GHOSH Primary Care Provider [phone] CM Complex Status:Enrolled (Active) Start date:10/21/2024 Enrollment date:11/18/2024 Enrollment reason:ADT Feed Overview ED- [place] [facility] [place]. Case Team Name Relationship Phone Miguel Horowitz RN(Responsible Staff) Registered Alysha colbert [phone] Continued Care and Services Coordination
== END 2025-01-01 15:01 | disposition home or self-care (01) ==
LOC: HO.HOS 14:03
PROVIDERS: PCP Internal Medicine Geriatric Medicine; Visit Provider Physician Assistant
DX: M75.101 Unspecified rotator cuff tear or rupture of right shoulder, not specified as traumatic (principal)
CPT/HCPCS: 99024

== ENCOUNTER → 2025-01-01 14:02 | Outpatient (BNVA) | payer OTHER, MEDICAID, SELFPAY | PROVIDERS: PCP Internal Medicine Geriatric Medicine; Visit Provider Physician Assistant | DX: M75.101 Unspecified rotator cuff tear or rupture of right shoulder, not specified as traumatic (principal) | CPT/HCPCS: 99212 ==

== ENCOUNTER 2025-01-23 13:00 | Outpatient (AMB) | payer OTHER, SELFPAY ==
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
--- OUTSIDE RECORDS SUMMARY | 2025-01-23 13:03 | XMS_ITS ---
Author Organization [facility] [employer] Address [address] [place] [address] 7t [place] [address] Care Team Providers Care Rack Room Worker Name Role Phone Name, Milton GHOSH Primary Care Provider [phone] CM Complex Status:Enrolled (Active) Start date:10/21/2024 Enrollment date:11/18/2024 Enrollment reason:ADT Feed Overview ED- Pt went to [facility] ED on 10/20/24. Case Team Name Relationship Phone Miguel Horowitz RN(Responsible Staff) Registered Alysha colbert [phone] Continued Care and Services Coordination
== END 2025-01-23 13:57 | disposition home or self-care (01) ==
LOC: HO.HOS 13:01
PROVIDERS: PCP Internal Medicine Geriatric Medicine; Visit Provider Physician Assistant
DX: M25.361 Other instability, right knee (principal)
CPT/HCPCS: 99213; G2211

== ENCOUNTER → 2025-01-23 13:00 | Outpatient (BNVA) | payer OTHER, MEDICAID, SELFPAY | PROVIDERS: PCP Internal Medicine Geriatric Medicine; Visit Provider Physician Assistant | DX: M25.561 Pain in right knee (principal); M25.361 Other instability, right knee | CPT/HCPCS: 99212 ==

== ENCOUNTER 2025-01-29 12:19 | Outpatient (AMB) | payer OTHER, SELFPAY ==
--- OUTSIDE RECORDS SUMMARY | 2025-01-29 12:47 | XMS_ITS ---
Author Organization [employer] Address [address] [place] [address] 7t [place] [address] Care Team Providers Care Disassembler Name Role Phone Name, Milton GHOSH Primary Care Provider [phone] CM Complex Status:Enrolled (Active) Start date:10/21/2024 Enrollment date:11/18/2024 Enrollment reason:ADT Feed Overview ED- Pt went to [facility] ED on 10/20/24. Case Team Name Relationship Phone Miguel Horowitz RN(Responsible Staff) Registered Alysha colbert [phone] Continued Care and Services Coordination
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
[2025-01-29 13:08] VITALS: BMI 29.5
== END 2025-01-29 13:43 | disposition home or self-care (01) ==
LOC: HO.HOS 12:19
PROVIDERS: PCP Internal Medicine Geriatric Medicine; Visit Provider Orthopaedic Surgery
DX: Z98.890 Other specified postprocedural states (principal)
CPT/HCPCS: 99024

== ENCOUNTER → 2025-01-29 12:19 | Outpatient (BNVA) | payer OTHER, MEDICAID, SELFPAY | PROVIDERS: PCP Internal Medicine Geriatric Medicine; Visit Provider Orthopaedic Surgery | DX: Z98.890 Other specified postprocedural states (principal) | CPT/HCPCS: 99212 ==

== ENCOUNTER 2025-03-12 09:34 | Outpatient (AMB) | payer OTHER, SELFPAY ==
[2025-03-12 09:38] VITALS: BMI 29.5
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
--- OUTSIDE RECORDS SUMMARY | 2025-03-12 10:20 | XMS_ITS | Clinical Summary ---
Author Organization [employer] Address [address] [facility] 7t [place] [address] Care Team Providers Care Information Systems Planner Name Role Phone Name, Milton GHOSH Primary Care Provider [phone] Allergies No known active allergies Medications * This document contains information received from the source organization and may not represent a complete record from that organization. Diclofenac Sodium (Voltaren) 1 % gel Use topical BID 100 g 3 024 Active lidocaine (Xylocaine) 5 % ointment Apply topically if needed for mild pain. 50 g 11 025 2025 Active meloxicam (Mobic) 7.5 MG tablet Take 1 tablet (7.5 mg) by mouth Once per day. 30 tablet Active gabapentin (Neurontin) 300 MG capsule Take 1 capsule (300 mg) by mouth 3 times daily. 90 capsule 11 025 2025 Active oxyCODONE (Roxicodone) 5 MG immediate release tabletIndicat ions:Right elbow pain,Chronic right shoulder pain,S/P right rotator cuff repair Take 2 tablets (10 mg) by mouth See administration instructions for 28 days. Take 2 taps per mouth prior to PT sessions 20 tablet 025 2024 Active tiZANidine (Zanaflex) 2 MG tablet Take 1 tablet (2 mg) by mouth every 8 (eight) hours if needed for muscle spasms for up to 10 days. 30 tablet 025 2024 Discontinued(T herapy completed) gabapentin (Neurontin) 100 MG capsule Take 1 capsule (100 mg) by mouth every 8 (eight) hours. 90 capsule 11 025 2024 Discontinued meloxicam (Mobic) 7.5 MG tablet TAKE 1 TABLET (7.5 MG) BY MOUTH ONCE PER DAY. 30 tablet 025 2024 Discontinued(T herapy completed) Active Problems Problem Noted Date Diagnosed Date S/P right rotator cuff repair 12/24/2024 Neuropathic pain of right lower extremity 2024 Fall 08/11/2024 Right knee pain 08/11/2024 Recurrent right knee instability 08/11/2024 Assessment & Plan (08/11/2024 6:46 PM EST): Right knee instability, [facility] Upcoming visit with ortho Exam limited [...] Encounters Date Type Department Care Team Description 03/11/2025 Patient Outreach [facility] [address] [place] [phone] Milton Venegas MD 03/02/2025 10:45 AM EDT Office Visit [address] [address] Milton Venegas MD Right elbow pain (Primary Dx); Chronic right shoulder pain; S/P right rotator cuff repair 03/02/2025 Travel 02/25/[address] [address] Milton Venegas MD telephone call; Med Refill 02/13/2025 Patient Outreach [address] [address] Milton Venegas MD Care Management (C3- F/U call # 1/LVM) 02/12/[address] [address] Gerard Hernandes [place] march recalls 02/06/2025 Patient Outreach [address] [address] Milton Venegas MD Care Coordination (C3 -[facility] Glenis Mitchell telephone call outreach/) 01/27/2025 Patient Outreach [address] [address] Milton Venegas MD Care Management (C3- Follow up call # 1/LVM) 2025 Patient Outreach [address] [address] Milton Vneegas MD Care Coordination 12/26/2024 Patient Outreach [address] [address] Milton Venegas MD Care Coordination 12/24/2024 2:00 PM EDT Office Visit [address] [address] Milton Venegas MD Neuropathic pain of right lower extremity (Primary Dx); S/P right rotator cuff repair 12/24/2024 Travel 12/23/[address] [address] Milton Venegas MD Chart Prep 12/23/2024 Patient Outreach [address] [address] Milton Venegas MD Care Management (C3- Follow up call # 1) 12/11/2024 Patient Outreach [address] [address] Milton Venegas MD Care Coordination from Last 3 Months Social History Tobacco Use Types Packs/Day Years Used Date Smoking Tobacco: Former Cigarettes Tobacco Cessation:Counseling Given: Not Answered Alcohol Use Standard Drinks/Week Comments Yes 0 (1 standard drink = 0.6 oz pur e alcohol) oca Depression Answer Date Recorded Patient Health Questionnaire-9 Score 12 11/18/2024 Patient Health Questionnaire-9 Score 12 11/18/2024 Last PHQ-9: Questionnaire Data Not on file 0 11/18/2024 Housing Stability Answer Date Recorded What is [...] Answer Date Recorded Patient Health Questionnaire-2 Score 3 11/18/2024 Internet Access Answer Date Recorded Internet Access [...] Sign Reading Time Taken Comments Blood Pressure 138/84 03/02/2025 10:33 AM EDT Pulse 84 03/02/2025 10:33 AM EDT Temperature 36.4 C (97.6 F) 03/02/2025 10:33 AM EDT Respiratory Rate 18 03/02/2025 10:33 AM EDT Oxygen Saturation 99% 03/02/2025 10:33 AM EDT Inhaled Oxygen Concentration - - Weight 93.6 kg (206 lb 6.4 oz) 03/02/2025 10:33 AM EDT Height 172.7 cm (5' 8 ) 03/02/2025 10:33 AM EDT Body Mass Index 31.38 03/02/2025 10:33 AM EDT Plan of Treatment Upcoming Encounters Date Type Department Care Team (Late st Contact Info) Description 04/28/2025 9:30 AM EDT Office Visit [facility] [address] [place] [address] Name, MD Milton [address] [facility] [place] [address] Health Maintenance Due Date Last Done Comments HIV Screening 1989 Lipid Panel 1989 Alcohol/Substance Use Screening 2001 Family Planning (PISQ) 01/14/2004 HPV Vaccines (1 - Male 3-dos e series) 01/14/2004 Hepatitis C Screening 2007 DTaP/Tdap/Td Vaccines (1 - Tdap) 01/14/2008 Hepatitis B Vaccines (1 of 3 - 19+ 3-dose series) 01/14/2008 COVID-19 Vaccine (1 - 202-2 5 season) 2025 Influenza Vaccine (#1) 2025 Depression Monitoring 05/21/2025 11/18/2024 , 11/18/2024 SDOH Screening 10/22/2025 10/22/2024 Disability Screening 12/24/2025 12/24/2024 Tobacco Screening 03/02/2026 03/02/2025 Zoster Vaccines (1 of 2) 2039 RSV [...] patient's age to complete this topic Meningococcal B Vaccine Aged Out No l onger eligible based on patient's age to complete this topic Meningococcal Vaccine Aged Out No te siobhan eligible based on patient's age to complete this topic Pneumococcal Vaccine: Pediatrics (0 to 5 Years) and At-Risk Patients (6 to 49) Years Aged Out No longer eligible b ased on patient's age to complete this topic RSV under 20 months Aged Out No longe r eligible based on patient's age to complete this topic Rotavirus Vaccines Aged Out No longer eligible based on patient's age to complete this topic Insurance [employer] C3 [employer] C3 Care Teams Information Systems Planner Relationship Specialty Start Date End Date Name, MD Milton [address] [place] [id number] PCP - General Internal Medicine 01/28/24
--- OUTSIDE RECORDS SUMMARY | 2025-03-12 10:20 | XMS_ITS | Encounter Summary ---
Author Organization [employer] Address [address] [facility] 7t [place] [address] Care Team Providers Care Boatbuilder Supervisor Name Role Phone Name, Milton GHOSH Primary Care Provider [phone] Encounter Details Date Type Department Care Team (Late st Contact Info) Description 03/11/2025 Patient Outreach [facility] [address] [place] [address] Name, MD Milton [address] [place] [address] Social History Tobacco Use Types Packs/Day Years [...] Description 04/28/2025 9:30 AM EDT Office Visit [facility] [address] [place] [address] Name, MD Milton [address] [place] [address] documented as of this encounter Visit Diagnoses Not on filedocumented in this encounter Additional Health Concerns Assessment Noted Time PHQ-9 Depression Total Score: 12 025 10:20 AM EDT documented as of this encounter Care Teams Boatbuilder Supervisor Relationship Specialty Start Date End Date NameMilton MD [address] [place] [id number] PCP - General Internal Medicine 01/28/24 documented as of this encounter
--- OUTSIDE RECORDS SUMMARY | 2025-03-12 10:20 | XMS_ITS ---
Author Organization [employer] Address [address] [place] [address] [address] [place] [address] Care Team Providers Care Telephone Ad Taker Name Role Phone Name, Milton GHOSH Primary Care Provider [phone] CHW Complex Status:Enrolled (Active) Start date:10/21/2024 Enrollment date:10/22/2024 Enrollment reason:ADT Feed Overview ED- Pt went to [facility] ED on 10/20/24. Case Team Name Relationship Phone Glenis Mitchell(Responsible Staff) Continued Care and Services Coordination
== END 2025-03-12 10:15 | disposition home or self-care (01) ==
LOC: HO.HOS 09:34
PROVIDERS: PCP Internal Medicine Geriatric Medicine; Visit Provider Orthopaedic Surgery
DX: Z98.890 Other specified postprocedural states (principal)
CPT/HCPCS: 99024

== ENCOUNTER → 2025-03-12 09:34 | Outpatient (BNVA) | payer OTHER, MEDICAID, SELFPAY | PROVIDERS: PCP Internal Medicine Geriatric Medicine; Visit Provider Orthopaedic Surgery | DX: Z04.2 Encounter for examination and observation following work accident (principal); M77.11 Lateral epicondylitis, right elbow; Z98.890 Other specified postprocedural states | CPT/HCPCS: 99212 ==

== ENCOUNTER 2025-04-23 10:10 | Outpatient (AMB) | payer OTHER, SELFPAY ==
[2025-04-23 10:14] VITALS: BMI 29.5
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
--- OUTSIDE RECORDS SUMMARY | 2025-04-23 12:23 | XMS_ITS | Encounter Summary ---
Author Organization [employer] Address [address] [facility] 7t [place] [address] Care Team Providers Care Director Hardware Name Role Phone Name, Milton GHOSH Primary Care Provider [phone] Encounter Details Date Type Department Care Team (Latest Contact Info) Description 04/21/2025 Travel Social History Tobacco Use Types Packs/Day Years [...] Description 04/28/2025 9:30 AM EDT Office Visit [facility] [address] [place] [address] Name, MD Milton [address] [place] [address] documented as of this encounter Visit Diagnoses Not on filedocumented in this encounter Additional Health Concerns Assessment Noted Time PHQ-9 Depression Total Score: 12 025 10:20 AM EDT documented as of this encounter Care Teams Director Hardware Relationship Specialty Start Date End Date Name, MD Milton [address] [place] [id number] PCP - General Internal Medicine 01/28/24 documented as of this encounter
--- OUTSIDE RECORDS SUMMARY | 2025-04-23 12:23 | XMS_ITS | Clinical Summary ---
Author Organization [employer] Address [address] [facility] 7t [place] [address] Care Team Providers Care Film Booker Name Role Phone Name, Milton GHOSH Primary Care Provider [phone] Allergies No known active allergies Medications * This document contains information received from the source organization and may not represent a complete record from that organization. Diclofenac Sodium (Voltaren) 1 % gel Use topical BID 100 g 3 03/03/20 24 Active lidocaine (Xylocaine) 5 % ointment Apply topically if needed for mild pain. 50 g 11 09/11/19 25 2025 Active gabapentin (Neurontin) 300 MG capsule Take 1 capsule (300 mg) by mouth 3 times daily. 90 capsule 11 03/02/20 25 2025 Active meloxicam (Mobic) 7.5 MG tablet TAKE 1 TABLET BY MOUTH ONCE A DAY 30 tablet 03/31/20 25 Active meloxicam (Mobic) 7.5 MG tablet Take 1 tablet (7.5 mg) by mouth Once per day. 30 tablet 03/02/20 25 2024 Discontinued oxyCODONE (Roxicodone) 5 MG immediate release tabletIndicat ions:Right elbow pain,Chronic right shoulder pain,S/P right rotator cuff repair Take 2 tablets (10 mg) by mouth See administration instructions for 28 days. Take 2 taps per mouth prior to PT sessions 20 tablet 03/02/20 25 2024 Active Problems Problem Noted Date Diagnosed Date [...] Encounters Date Type Department Care Team Description 04/21/2025 Patient Outreach [facility] [address] [place] [address] Milton Venegas MD Pre-visit Planning (SDOH was already completed) 04/21/2025 Travel 03/29/[address] [address] Milton Venegas MD 03/25/2025 Patient Outreach [address] [address] Milton Venegas MD Care Coordination ([address] Glenis Mitchell telephone call outreach) 03/11/2025 Patient Outreach [address] [address] Milton Venegas MD 03/02/2025 10:45 AM EDT Office Visit [address] [address] Milton Venegas MD Right elbow pain (Primary Dx); Chronic right shoulder pain; S/P right rotator cuff repair 03/02/2025 Travel 02/25/2025 Telephone [facility] [address] [place] [address] Milton Venegas MD telephone call; Med Refill 02/13/2025 Patient Outreach [address] [address] Milton Venegas MD Care Management (C3- F/U call # 1/LVM) 02/12/2025 Telephone [facility] [address] [place] [address] HernandesGerard madden [place] march recalls 02/06/2025 Patient Outreach [facility] [address] [place] [address] Milton Venegas MD Care Coordination (C3 -[facility] Glenis Mitchell telephone call outreach/) 01/27/2025 Patient Outreach [facility] [address] [place] [address] Milton Venegas MD Care Management (C3- Follow up call # 1/LVM) from Last 3 Months Social History Tobacco [...] Description 04/28/2025 9:30 AM EDT Office Visit [facility] [address] [place] [address] Name, MD Milton [address] [place] [address] Health Maintenance Due Date Last Done Comments HIV Screening 1989 Lipid Panel 1989 Alcohol/Substance Use Screening 2001 Family Planning (PISQ) 01/14/2004 HPV Vaccines (1 - Male 3-dos e series) 01/14/2004 Hepatitis C Screening 2007 DTaP/Tdap/Td Vaccines (1 - Tdap) 01/14/2008 Hepatitis B Vaccines (1 of 3 - 19+ 3-dose series) 01/14/2008 COVID-19 Vaccine (1 - 2023-2 5 season) 2025 Influenza Vaccine (#1) 2025 Depression Monitoring 05/21/2025 11/18/2024 , 11/18/2024 SDOH Screening 10/22/2025 10/22/2024 Tobacco Screening 03/02/2026 03/02/2025 Disability Screening 04/21/2026 04/21/2025 Zoster Vaccines (1 of 2) 2039 RSV [...] patient's age to complete this topic Insurance [employer] C3 [employer] C3 Care Teams Film Booker Relationship Specialty Start Date End Date Name, MD Milton [address] [place] [address] PCP - General Internal Medicine 01/28/24
--- OUTSIDE RECORDS SUMMARY | 2025-04-23 12:23 | XMS_ITS | Encounter Summary ---
Author Organization [employer] Address [address] [place] [address] Care Team Providers Care Business Proposal Rep Name Role Phone Name, Milton GHOSH Primary Care Provider [phone] Reason for Visit * Reason Comments Pre-visit Planning SDOH was already com pleted Encounter Details Date Type Department Care Team ([facility] st Contact Info) Description 04/21/2025 Patient Outreach [facility] [address] [place], [place] [id number] Name, MD Milton [address] [place] [address] Pre-visit Planning (SDOH was already completed) Social History Tobacco Use Types Packs/Day Years [...] as of this encounter Progress Notes * Liz Mayen - 04/21/2025 3:18 PM EDT CC Liz Castellon placed successful outbound call to patient for pre-visit planning. Patient name and confirmed. Patient confirms appt date and time, and has transportation arrangements. Biggest concern for appointment at this time is leg and arm pain. Appropriate screenings completed in anticipation of appointment. documented in this encounter Plan of Treatment Upcoming Encounters Date Type Department Care Team (Late st Contact Info) Description 04/28/2025 9:30 AM EDT Office Visit [facility] [address] [place] [address] Name, MD Milton [address] [place] [address] documented as of this encounter Visit Diagnoses Not on filedocumented in this encounter Additional Health Concerns Assessment Noted Time PHQ-9 Depression Total Score: 12 025 10:20 AM EDT documented as of this encounter Care Teams Business Proposal Rep Relationship Specialty Start Date End Date NameMilton MD [address] [place] [address] PCP - General Internal Medicine 01/28/24 documented as of this encounter
== END 2025-04-23 10:52 | disposition home or self-care (01) ==
LOC: HO.HOS 10:11
PROVIDERS: PCP Internal Medicine Geriatric Medicine; Visit Provider Orthopaedic Surgery
DX: Z47.89 Encounter for other orthopedic aftercare (principal); S46.011D Strain of muscle(s) and tendon(s) of the rotator cuff of right shoulder, subsequent encounter
CPT/HCPCS: 99213

== ENCOUNTER → 2025-04-23 10:10 | Outpatient (BNVA) | payer OTHER, MEDICAID, SELFPAY | PROVIDERS: PCP Internal Medicine Geriatric Medicine; Visit Provider Orthopaedic Surgery | DX: Z98.890 Other specified postprocedural states (principal); S46.011D Strain of muscle(s) and tendon(s) of the rotator cuff of right shoulder, subsequent encounter | CPT/HCPCS: 99212 ==